=== PATIENT | female | born 1945 | race Caucasian/White ===

== ENCOUNTER 2020-08-01 13:55 | Emergency (ER) | payer MEDICARE, OTHER ==
[~2020-08-01] VITALS: Ht 154.9 cm; Wt 64.0 kg
[2020-08-01] MEDS ORDERED: CELECOXIB100 MG PO (14:13)
[2020-08-01] MEDS ORDERED: FLUDROCORTISON0.1 MG PO (14:13)
[2020-08-01] MEDS ORDERED: HYDROCORTISONE10 MG PO (14:13)
[2020-08-01] MEDS ORDERED: ESTRADIOL42.5 GM VG (14:14)
[2020-08-01] MEDS ORDERED: GABAPENTIN800 MG PO (14:14)
[2020-08-01] MEDS ORDERED: LEVOTHYROXINE150 MCG PO (14:14)
[2020-08-01] MEDS ORDERED: ESTRADIOL1 EAC1 TD (14:14)
[2020-08-01] MEDS ORDERED: ONE TOUCH ULTR1 EACH MISC (14:15)
== END 2020-08-01 16:34 | disposition home or self-care (01) ==
LOC: ED 13:55
DX: G43.909 Migraine, unspecified, not intractable, without status migrainosus (principal); Z79.899 Other long term (current) 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
CPT/HCPCS: 70450; 80053; 85025; 85651; 96374; 96375; 99284-25; J1200; J2270; J2765; J7040

== ENCOUNTER 2020-10-21 16:46 | Emergency (ER) | payer MEDICARE, OTHER ==
[~2020-10-21] VITALS: Ht 154.9 cm; Wt 61.2 kg
[~2020-10-21 16:46] MED LIST: CELECOXIB100 MG PO; ESTRADIOL1 EAC1 TD; ESTRADIOL42.5 GM VG; FLUDROCORTISON0.1 MG PO; GABAPENTIN800 MG PO; HYDROCORTISONE10 MG PO; LEVOTHYROXINE150 MCG PO; ONE TOUCH ULTR1 EACH MISC
--- NOTE | 2020-10-21 22:39 | EKG ---
[facility] [address] [facility] [place], [place] [address] Signed Normal sinus rhythm T wave abnormality, consider anterior ischemia Abnormal ECG No previous ECGs available Confirmed by BOBO FULLER MD ([id number]) on 10/21/2020 10:39:36 PM Electronically Signed By: BOBO FULLER MD 10/21/20 2239 PATIENT NAME: LOGAN LOPEZ Electrocardiogram DATE OF : 47 PHYSICIAN: BOBO FULLER MD REPORT #: [id number] REPORT IS CONFIDENTIAL AND NOT TO BE RELEASED WITHOUT AUTHORIZATION
== END 2020-10-21 23:14 | disposition home or self-care (01) ==
LOC: ED 16:46
DX: I10 Essential (primary) hypertension (principal); E83.42 Hypomagnesemia; E87.6 Hypokalemia; E11.9 Type 2 diabetes mellitus without complications; E03.9 Hypothyroidism, unspecified; Z79.899 Other long term (current) 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
CPT/HCPCS: 80048; 83735; 84484; 85025; 93005; 93010; 99285-25

== ENCOUNTER 2021-09-30 11:11 | Inpatient (IN) | payer MEDICARE, OTHER ==
[~2021-09-30] VITALS: Ht 154.9 cm; Wt 65.3 kg
[2021-09-30] MEDS ORDERED: ESCITALOPRAM OX10 MG PO (11:33)
[2021-09-30] MEDS ORDERED: CLOPIDOGREL75 MG PO (11:33)
[2021-09-30] MEDS ORDERED: ATORVASTATIN CA40 MG PO (11:33)
[2021-09-30] MEDS ORDERED: PRAMIPEXOLE0.125 MG PO (11:34)
--- OUTSIDE RECORDS SUMMARY | 2021-09-30 12:58 | XMS ---
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 Jeanne has no Care Guidelines for this patient. Arely VISIT COUNT (12 MO.) 1 [facility] 2 JULIETTE Manzanares TOTAL 3 NOTE: Visits indicate total known visits. ED/C VISIT TRACKING (12 MO.) 09/30/2021 11:11 JULIETTE Adame [place] TYPE: Emergency COMPLAINT: - FEVER WEAKNESS 08/20/2021 09:54 [facility] Bita MARQUEZ TYPE: Emergency DIAGNOSES: - Facial Droop - Transient cerebral ischemic attack, unspecified - Acute cystitis without hematuria - Extremity Weakness 10/21/2020 16:46 JULIETTE Abdul TYPE: Emergency COMPLAINT: - BLOOD PRESSURE PROBLEM DIAGNOSES: - Hypothyroidism, unspecified - Hypomagnesemia - Essential (primary) hypertension - Hypokalemia - Other halfway (current) 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 - Type 2 diabetes mellitus without complications INPATIENT VISIT TRACKING (12 MO.) 08/21/2021 18:11 [facility] Pierce [facility] M[facility] TYPE: Neurology DIAGNOSES: - Hypothyroidism, unspecified - Weakness - Restless legs syndrome - Personal history of other diseases of the nervous system and sense organs - Flushing - Other symptoms and signs involving the nervous system - Transient cerebral ischemic attack, unspecified - Primary adrenocortical insufficiency [email or web address]
--- NOTE | 2021-09-30 15:45 | NUR ---
THIS RN RECEIVED REPORT FROM MAJO REDMAN FROM THE ER. PT ARRIVE TO FLOOR VIA STRETCHER AND NEEDED TO BE PULLED OVER. PT PLEASANTLY CONFUSED AT THIS TIME, ORIENTED TO HER FIRST NAME
--- NOTE | 2021-09-30 16:21 | NUR ---
CALL TO DR. CRENSHAW RE: FEVER. ONE TIME DOSE 325MG PO TYLENOL ORDERED.
--- NOTE | 2021-09-30 19:18 | NUR ---
PT IN BED WITH EYES OPEN, NO NEEDS, CALL LIGHT IN REACH.
--- NOTE | 2021-09-30 20:56 | NUR ---
PT SON, [place], WOULD LIKE HIS NUMBER TO IN PT CHART, PT GAVE PERMISSION. [phone]
--- NOTE | 2021-09-30 21:36 | NUR ---
IN TO SEE PT. SCHEDULED MEDICATIONS DUE. ASSESSMENT COMPLETED. ASSISTED PT UP TO BSC AND BACK TO BED. IV FLUIDS INFUSING. PT DENIES PAIN AND DISCOMFORT. PT IS AFEBRIL AT THIS TIME. ALERT AND ORIETNTED X 3. PLEASANT AND COOPERATIVE [facility] STAFF AND CARES. SNACKS AND FRESH WATER PROVIDED. I AND O'S COMPLETED. NO OTHER NEEDS. BED ALARM ON. CALL LIGHT IN REACH.
--- NOTE | 2021-09-30 22:01 | EKG ---
[facility] [address] [facility] [place] [address] Signed Normal sinus rhythm Rightward axis Inferior infarct , age undetermined T wave abnormality, consider anterolateral ischemia Abnormal ECG When compared with ECG of 21-OCT-2020 20:36, Inferior infarct is now present T wave inversion now evident in Lateral leads Confirmed by FATOU CRENSHAW DO ([id number]) on 09/30/2021 10:01:26 PM Electronically Signed By: FATOU CRENSHAW DO 09/30/212200 PATIENT NAME: LOGAN LOPEZ Electrocardiogram DATE OF : 47 PHYSICIAN: FATOU CRENSHAW DO REPORT #: [id number] REPORT IS CONFIDENTIAL AND NOT TO BE RELEASED WITHOUT AUTHORIZATION
--- NOTE | 2021-09-30 22:33 | NUR ---
SCHEDULED MEDICATION GIVEN. PT RESTING, EASILY WAKES WITH VOICE. PT DENIES PAIN. NO OTHER NEEDS. BED ALARMN ON, CALL LIGHT IN REACH.
--- NOTE | 2021-09-30 23:39 | NUR ---
CALL LIGHT ON, BED ALARM SOUNDING. IN TO ASSSIT PT TO THE BATHROOM. NEW BAG IV FLUIDS INFUSING. PT BACK IN BED. NO OTHER NEEDS, BED ALARM ON. CALL LIGHT IN REACH.
--- NOTE | 2021-10-01 00:53 | NUR ---
IN TO ASSIST PT TO THE RESTROOM. PT BACK IN BED. PT DENIES PAINA NAD DISCOMFROT AT THIS TIME. NO OTHER NEEDS, BED ALARM ON, CALL LIGHT IN REACH.
--- NOTE | 2021-10-01 02:10 | NUR ---
in to see pt. scheduled medication given. vss obtained. assisted pt up to restroom to void. med formed bm noted. pt resing in bed on left side. fresh water provided. vss obtained. temp noted 99.3. blankets turned down. no other needs. bed alram on. call light in reach.
--- NOTE | 2021-10-01 03:42 | NUR ---
IN TO SEE PT. PT TEMP. 99.1. PT ASYMPYOMATIC AT THIS TIME. WILL CONTINUE TO MONITOR. BED ALARM ON. PT DENIES NEED TO USE RESTROOM SAT THIS TIME. CALL LIGHT IN REACH.
--- NOTE | 2021-10-01 05:16 | NUR ---
ASSISTED PT TO RESTROOM. ASSESSMENT COMPLETED. I AND O'S COMPLETED. VS COMPLETED. PT LAYING IN BED BED ALARM ON. NO OTHER NEEDS. PT DENIES PAIN. CALL LIGHT IN REACH.
--- NOTE | 2021-10-01 05:49 | NUR ---
scheduled medication given. pt laying in bed with eyes open. no other needs. bed alarm on. call light in reach.
--- NOTE | 2021-10-01 06:22 | NUR ---
ALERT AND OREITNED X 3. CONTINENT WITH INTERMITTENT INCONTINENCE, 1 PA PIVOT TO BSC, RA, REG DIET, AM LABS . NO C/O PAIN OR DISCOMOFRT. BED ALRAM. IV LAC SL, IV RFAWITH FLUID INFUSING. NO COUGH NOTED. COVID PERCUATIONS.
--- NOTE | 2021-10-01 07:30 | NUR ---
Shift report received from FEROZ Monte/ANAYA Hernandez in room to assist pt to bathroom, no further needs at this time
[2021-10-01] MEDS ORDERED: ESTRADIOL1 MG PO (09:40)
[2021-10-01] MEDS ORDERED: GLIMEPIRIDE2 MG PO (09:44)
[2021-10-01] MEDS ORDERED: LEXAPRO10 MG PO (09:46)
[2021-10-01] MEDS ORDERED: METFORMIN HCL500 M2 PO (09:49)
[2021-10-01] MEDS ORDERED: OMEPRAZOLE20 M1 PO (09:50)
--- NOTE | 2021-10-01 09:50 | NUR ---
Spoke with pt by phone as she is Covid +. Pt states she lives in town in a house with 3 steps. Steps have rails and she does not have issues with her steps. She has horses and chickens and is active. complaint is she is fatiqued. She states her spouse will complete house hold tasks, shopping and cooking. She denies needs and is not using 02. Plans on dc to home with spouse.
[2021-10-01] MEDS ORDERED: ACETYL L-CARNI1 EACH PO (09:51)
--- NOTE | 2021-10-01 09:54 | NUR ---
MED REC COMPLETED BY PHARMACY
--- NOTE | 2021-10-01 10:00 | NUR ---
Pt sitting up in bed safely w/ call light in reach. Morning assesment complete, scheduled meds given, and new bag of IV fluids hung and infusing per provider order. Pt denies any further needs at this time, VSS on RA
--- NOTE | 2021-10-01 11:08 | NUR ---
HAVE NOT SEEN PT DUE TO PRECAUTIONS. WILL FOLLOW NEEDED
--- NOTE | 2021-10-01 12:30 | NUR ---
Pt sitting up in bed w/ call light in reach, eating lunch. IV abx hung and infsuing per provider order. Pt denies any needs at this time, pt updated on plan of care
--- NOTE | 2021-10-01 13:50 | NUR ---
REPORT RECEIVED ON PT FROM DROP WIRER NANCY. PT TRANSPORTED TO THE CCU VIA HOSPITAL BED BY FEROZ HERNADEZ. PT WAS ALERT AND ORIENTED UPON ARRIVAL. ALL BELONGING TRANSPORTED WITH PT.
--- NOTE | 2021-10-01 14:00 | NUR ---
Pt transfered to CCU via hospital bed, VSS on RA, report given to CCU FEROZ Soares
--- NOTE | 2021-10-01 14:27 | NUR ---
INITIAL ASSESSMENT COMMPLETED. PT BLOOD GLUCOSE UPON ARRIVAL WAS 438. STARTED ON INSULIN DRIP AT 7.2 UNITS/HR AT THIS TIME. IV FLUIDS INFUSING. PT ALERT AND ORIENTED, UNDERSTANDS PLAN OF CARE AT THIS TIME. CALL LIGHT WITHIN REACH. DENIES FURTHER NEEDS AT THIS TIME.
--- NOTE | 2021-10-01 14:31 | NUR ---
PT UP TO BSC TO VOID. STEADY ON FEET. NOT FOLLOWING COMMANDS WELL. REORIENTED PT TO DIRECTIONS. BACK IN BED. FLUIDS AND INSULIN DRIP INFUSING. CALL LIGHT WITHIN REACH. NO FURTHER NEEDS AT THIS TIME.
--- NOTE | 2021-10-01 15:22 | NUR ---
INSULIN DRIP TITRATED PER PROTOCOL (SEE EMAR). PT RESTING IN BED WATCHING TELEVISION. CALL LIGHT WITHIN REACH. WILL CONTINUE TO MONITOR.
--- NOTE | 2021-10-01 17:00 | NUR ---
BANKING SERVICES OFFICER IN ROOM TO DRAW BLOOD. INSULIN DRIP TITRATED PER PROTOCOL (SEE EMAR). CALL LIGHT WITHIN REACH. DENIES FURTHER NEEDS AT THIS TIME.
--- NOTE | 2021-10-01 18:29 | NUR ---
PT GIVEN PO POTASSIUM AND IV FLUID BOLUS NOW INFUSING. PT UP TO VOID AGAIN AND BACK TO BED. INSULIN DRIP INFUSING PER PROTOCOL. CALL LIGHT WITHIN REACH. WILL CONTINUE TO MONITOR.
--- NOTE | 2021-10-01 20:15 | NUR ---
ASSESSED PT, MED PASS COMPLETED, CBG TAKEN AND INSLUIN DRIP TITRATED PER PROTOCOL, PT NOW ON COLUMN 3 AT 7.5 U/HR ON INSULIN DRIP, PT STATES SHE IS COMFORTABLE WITH NO COMPLAINTS AT THIS TIME, APPEARS TO BE IN GOOD SPIRITS, EDUCATION PROVIDED ON MEDICATIONS GIVEN AND EFFECTS OF INSULIN DRIP/REASON FOR REQUIRING POTASSIUM, WILL CONTINUE HOURLY BLOOD SUGAR CHECKS AND TITRATE INSULIN DRIP PER PROTOCOL
--- NOTE | 2021-10-01 20:47 | NUR ---
CALL LIGHT ANSWERED. PT UP TO BSC WITH SBA. VOIDED 450ML DILUTE YELLOW URINE, SAMPLE SENT TO LAB. RN ASSISTED WITH PERICARE, PT NOW BACK IN BED. TOLERATED ACTIVITY WELL, DENIES SOB OR DIZZINESS. CALL LIGHT WITHIN REACH.
--- NOTE | 2021-10-01 21:11 | NUR ---
CBG 290, PER INSLUIN DRIP TITRATION PROTOCOL, PT WILL REMAIN AT 7.5 U/HR ON COLUMN 3
--- NOTE | 2021-10-01 22:19 | NUR ---
CHECKED PTS BLOOD SUGAR, TITRATED INSULIN DRIP PER PROTOCOL, AMBULATED PT TO BATHROOM VIA SBA, PT STEADY, ROM WNL, PT STATES SHES COMFORTABLE AND HAS NO QUESTIONS OR CONCERNS AT THIS TIME WITH HER TREATMENT
--- NOTE | 2021-10-02 | NUR ---
COMPLETED MIDNIGHT ASSESSMENT, PT SLEEPING, CHECKED CBG AND TITRATED INSULIN DRIP PER PROTOCOL, PT APPEARS COMFORTABLE AND RESTING WELL
--- NOTE | 2021-10-02 02:24 | NUR ---
IN TO GIVE SCHEDULED MEDS AND CHECK BLOOD SUGAR. CB, INSULIN DRIP TITRATED TO 6.8 UNITS/HR PER PROTOCOL. PT UP TO BATHROOM WITH SBA FOR CORD MANAGEMENT. PT VOIDED 350ML DILUTE YELLOW URINE AND PROVIDED OWN PERICARE. PT BACK IN BED, DENIES FURTHER REQUESTS. CALL LIGHT WITHIN REACH.
--- NOTE | 2021-10-02 04:58 | NUR ---
PT BLOOD SUGAR 154, DROPPED TO COLUMN 3 ON INSULIN DRIP TITRATION PROTOCOL AND DECREASED RATE TO 3 U/HR. AMBULATED PT TO BATHROOM VIA SBA, PT STEADY ON FEET. STATES SHE IS FEELING WELL AND HAS NO COMPLAINTS. DENIES DYSPNEA OR DIZZINESS WHILE AMBULATING
--- NOTE | 2021-10-02 06:18 | NUR ---
PT EXPERIENCED UNEVENTFUL NIGHT, REMAINED A&OX4, NO CONFUSION, OCCASIONALLY FORGETFULL, DENIES ANY SHORTNESS OF BREATH, PT ABLE TO AMBULATE WELL TO BATHROOM WITH SBA FROM STAFF. INSULIN DRIP REMAINS ON AT 3 U/HR PER TITRATION PROTOCOL, BLOOD SUGARS TRENDED DOWN TOWARDS GOAL THROUGHOUT NIGHT, D5 1/2 NS ADDED ONCE BLOOD SUGARS WERE UNDER 200. PT IS SLEEPING AND APPEARS COMFORTABLE.
--- NOTE | 2021-10-02 07:30 | NUR ---
REPORT RECIEVED FROM DAY SHIFT RN. CARE OF PATIENT ASSUMED AT THIS TIME.
--- NOTE | 2021-10-02 08:00 | NUR ---
PATIENT UP TO BR FOR VOID AND BACK TO BED. PATIENT REFUSED BED BATH AND CHAIR AT THIS TIME. LINENS CHANGED, FACE AND HANDS WASHED. PATIENT SITTING UP FOR BREAKFAST. VITALS CHARTED
--- NOTE | 2021-10-02 09:01 | NUR ---
IN ROOM FOR ASSESSMENT AND MEDICATION ADMINISTRATION. INSULIN DRIP TITRATED AT THIS TIME PER PROTOCOL (SEE EMAR). PT ALERT AND OREINTED, ANSWERING QUESTIONS APPROPRIATELY. PLAN OF CARE FOR DAY ESTABLISHED. ALL QUESTIONS ANSWERED. CALL LIGHT WITHIN REACH. DENIES FURTHER NEEDS AT THIS TIME.
--- NOTE | 2021-10-02 10:15 | NUR ---
INSULIN DRIP TITRATED PER PROTOCOL. PT IN BED SLEEPING IV FLUIDS INFUSING ALONG WITH INSULIN DRIP. CALL LIGHT WITHIN REACH. WILL CONTINUE TO MONITOR.
--- NOTE | 2021-10-02 11:22 | NUR ---
PATIENT SBA TO BR FOR VOID AND LOOSE STOOL. THIS PUBLIC INFORMATION SPECIALIST ASSISTED PATIENT WITH BEDBATH. PATIENT BACK TO SIDE OF BED. FRESH ICE WATER PROVIDED. CALL LIGHT AND PERSONAL ITEMS IN EASY REACH
--- NOTE | 2021-10-02 12:08 | NUR ---
ASSESSMENT COMPLETED AT THIS TIME. PT TAKEN OFF THE INSULIN DRIP AT 1130. GIVEN 5 UNITS OF INSULIN PER SLIDING SCALE (SEE EMAR). IV FLUIDS DC'D AT THIS TIME. ROCEPHIN NOW INFUSING. PT EATING LUNCH. DENIES PAIN OR DISCOMFORT. CALL LIGHT WITHIN REACH. WILL CONTINUE TO MONITOR.
--- NOTE | 2021-10-02 14:00 | NUR ---
Spoke with Renetta. BS has stabilized. Wants to go home with family. Denies needs. May move to the floor today from CCU. She requested per Dr. Concepcion for a change of MD. Discussed with pt she will need to call and do this. Gave info of other medical offices in the area.
--- NOTE | 2021-10-02 14:36 | NUR ---
LAB IN ROOM AT THIS TIME FOR BLOOD DRAW.
--- NOTE | 2021-10-02 15:16 | NUR ---
ASSESSMENT COMPLETED. PT UP TO BSC WITH MINIMAL STAND BY ASSIST. PT STEADY ON FEET. LUNGS SOUND CLEAR THROUGHOUT. PT DENIES PAIN, DIZZINESS, SHORTNESS OF BREATH, OR ANY OTHER DISCOMFORT. BACK IN BED. CALL LIGHT WITHIN REACH. WILL CONTINUE TO MONITOR.
--- NOTE | 2021-10-02 17:44 | NUR ---
THIS RN TRANSFERED PT TO [facility] - ORIENTED PT TO ROOM, CALL LIGHT IN REACH, DENIES NEEDS. PT WAS NOT AWARE SHE SAID THAT SHE STILL HAD COVID - JUST THOUGHT THAT WHILE SHE WAS HERE THAT SHE TESTED POSITIVE - NEEDS CONTINUED EDUCATION ON ILLNESS. BS 247 VIA FINGER STICK.
--- NOTE | 2021-10-02 18:55 | NUR ---
SHIFT REPORT RECEIVED FROM DAYSHIFT FEROZ CHILDS AT BEDSIDE. pt AWAKE AND RESTING IN BED, RR EVEN AND UNLABORED. pt ON RA, NO DISTRESS NOTED. CALL LIGHT IN REACH.
--- NOTE | 2021-10-02 21:00 | NUR ---
IN TO GET VITALS, PT TO THE TOILET WITH SBA, ICE WATER PROVIDED, NO FURTHER NEEDS AT THIS TIME
--- NOTE | 2021-10-02 22:03 | NUR ---
ASSESSMENT COMPLETE, SCHEDULED PO MEDS GIVEN (SEE EMAR). pt AWAKE AND RESTING IN BED, ON RA. VSS. pt DENIES NAUSEA AND PAIN. IV SITES X2 WNL, FLUSH EASILY. NO FURTHER NEEDS, CALL LIGHT IN REACH.
--- NOTE | 2021-10-02 22:30 | NUR ---
SCHEDULED INSULIN LISPRO VERIFIED WITH SECOND RN CODEY AND GIVEN, SEE EMAR. ANAYA MAYFIELD TO GIVE WARM BLANKET PER pt REQUEST. CALL LIGHT IN REACH.
--- NOTE | 2021-10-03 | NUR ---
IN TO ASSIST PT WITH TOILET NEEDS
--- NOTE | 2021-10-03 01:03 | NUR ---
pt RESTING IN BED WITH EYES CLOSED. RR EVEN AND UNLABORED, NO DISTRESS NOTED. pt APPEARS RELAXED AND COMFORTABLE. CALL LIGHT IN REACH.
--- NOTE | 2021-10-03 03:21 | NUR ---
pt RESTING IN BED, AWAKE. pt DENIES NEEDS. CALL LIGHT REMAINS IN REACH.
--- NOTE | 2021-10-03 03:39 | NUR ---
ASSESSMENT COMPLETE, NO ACUTE CHANGES. pt A/OX4, DENIES PAIN AND NAUSEA. REPORTS OCCASIONAL COUGH, NO NEEDS OR CONCERNS VERBALIZED. CALL LIGHT IN REACH. pt CALLS APPROPRIATELY.
--- NOTE | 2021-10-03 05:37 | NUR ---
PT CALLED, UP TO BATHROOM SBA, BACK, VS, I/O COMPLETE. WARM BLANKET PROVIDED. CALL LIGHT WITHIN REACH NO OTHER NEEDS.
--- NOTE | 2021-10-03 05:57 | NUR ---
SCHEDULED THYROID MEDICATION GIVEN, SEE EMAR. FRESH WATER GIVEN, SEE EMAR. NO FURTHER NEEDS, CALL LIGHT IN REACH. LAB IN ROOM FOR SCHEDLED AM LAB DRAW.
--- NOTE | 2021-10-03 06:46 | NUR ---
DR FULLER CALLED FOR CRITICAL AM POTASSIUM, RESULT OF 2.3. NO NEW ORDERS RECEIVED AT THIS TIME. CONDUIT HELPERFEROZ ALEGRE AWARE.
--- NOTE | 2021-10-03 09:07 | NUR ---
IN PT ROOM DISCUSSED LOW CARB ADA DIET - AND KCL - PT EATING BANANNA AND TAKING PO MEDS INCLUDING KCL FOR LOW VALUE. TALKED ABOUT MODERATION OF FOOD. PT REPORTS SHE FEELS BACK TO BASE LINE - WITH OCCASIONAL COUGH. ALERT AND ORIENTED. HOPING TO GO HOME TODAY WITH . BS WNL AT BREAKFAST NO INSULIN NEEDED.
--- NOTE | 2021-10-03 09:20 | NUR ---
UPDATE ON PT TO DR FULLER AT BEDSIDE. PT HOPING TO GO HOME.
[2021-10-03] MEDS ORDERED: KLOR-CON 1010 MEQ PO (12:05)
[2021-10-03] MEDS ORDERED: HYDROCORTISONE10 MG PO (12:06)
--- NOTE | 2021-10-03 12:15 | NUR ---
PT NOT EATING LUNCH HERE - REFUSED BS CHECK AND 14OO MED - WILL TAKE NOON IV ABX - UP IN WAITING FOR DC TO HOME.
--- NOTE | 2021-10-03 13:01 | NUR ---
PT IV DC FROM UNSCRAMBLER WITH RN APPROVAL -DC INST. GIVEN AND APPT. CARD AND VITALS - RX IN TO DISCUSS MED - WAITING FOR FOR RIDE HOME.
== END 2021-10-03 13:00 | disposition home or self-care (01) | DRG 70 ==
LOC: ED 11:11 → MS 14:51 → CCU 10-01 13:50 → MS 10-02 17:30
PROVIDERS: ADMIT Student in an Organized Health Care Education/Training Program; ATTEND Student in an Organized Health Care Education/Training Program
PROC: 8E0ZXY6 Isolation (ICD-10-PCS; principal; 2021-09-30)
DX: G93.41 Metabolic encephalopathy (principal); E11.10 Type 2 diabetes mellitus with ketoacidosis without coma; U07.1 COVID-19; E27.1 Primary adrenocortical insufficiency; G25.81 Restless legs syndrome; G89.4 Chronic pain syndrome; E03.9 Hypothyroidism, unspecified; G47.00 Insomnia, unspecified; E11.65 Type 2 diabetes mellitus with hyperglycemia; T38.0X5A Adverse effect of glucocorticoids and synthetic analogues, initial encounter; Z90.710 Acquired absence of both cervix and uterus; Z79.899 Other long term (current) 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
CPT/HCPCS: 71045; 80048; 80053; 81001; 82010; 82140; 82436; 82803; 83036; 83605; 83735; 84133; 84300; 85025; 86140; 93005; 93010; 97165; 99285-25; A9270; C9803; G0480; J0696; J1650; J1720; J1815; J3475; J7030; J7042; J7070; J7121; M0243; Q0244; U0003

== ENCOUNTER 2021-10-22 13:48 | Inpatient (IN) | payer MEDICARE ==
[~2021-10-22] VITALS: Ht 154.9 cm; Wt 62.4 kg
[~2021-10-22 13:48] MED LIST changes: +ACETYL L-CARNI1 EACH PO; +ATORVASTATIN CA40 MG PO; +CLOPIDOGREL75 MG PO; +ESCITALOPRAM OX10 MG PO; +ESTRADIOL1 MG PO; +GLIMEPIRIDE2 MG PO; +KLOR-CON 1010 MEQ PO; +LEXAPRO10 MG PO; +METFORMIN HCL500 M2 PO; +OMEPRAZOLE20 M1 PO; +PRAMIPEXOLE0.125 MG PO
--- OUTSIDE RECORDS SUMMARY | 2021-10-22 13:50 | XMS ---
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 Care History Medical/Surgical 10/01/2021 [facility] - Patient is currently established with [facility]. If patient is seen in the ED during business hours. Please contact CHWs at [facility]. Care Recommendation: If this patient has had 5 or more Emergency Department visits in the last 12 months.\T\nbsp; Patient will require education on the scope and purpose of the ED as an acute care provider not a Primary Care Provider and should not be utilized for chronic conditions.\T\nbsp; These are guidelines and the provider should exercise clinical judgment when providing care. [facility] MO.) [facility] TOTAL 3 NOTE: Visits indicate total known visits. ED/UCC VISIT TRACKING (12 MO.) 10/22/2021 13:48 JULIETTE Adame [place] TYPE: Emergency COMPLAINT: - WEAKNESS 09/30/2021 11:11 JULIETTE Adame [place] TYPE: Emergency COMPLAINT: - FEVER WEAKNESS 08/20/2021 09:54 [facility] Bita MARQUEZ TYPE: Emergency DIAGNOSES: - Facial Droop - Transient cerebral ischemic attack, unspecified - Acute cystitis without hematuria - Extremity Weakness INPATIENT VISIT TRACKING (12 MO.) 09/30/2021 14:51 JULIETTE Adame [place] TYPE: Medical Surgical COMPLAINT: - COVID/AMS DIAGNOSES: - Metabolic encephalopathy - Metabolic encephalopathy - Adverse effect of glucocorticoids and synthetic analogues, initial encounter - Primary adrenocortical insufficiency - Type 2 diabetes mellitus with hyperglycemia - Hypothyroidism, unspecified - 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) 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 - Hypothyroidism, unspecified - Restless legs syndrome - Restless legs syndrome - Acquired absence of both cervix and uterus - Other alf (current) 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 - Type 2 diabetes mellitus with hyperglycemia - Chronic pain syndrome - Insomnia, unspecified - Type 2 diabetes mellitus with ketoacidosis without coma - COVID-19 - Primary adrenocortical insufficiency - Acquired absence of both cervix and uterus - COVID-19 - Insomnia, unspecified - Type 2 diabetes mellitus with ketoacidosis without coma - COVID-19 - Adverse effect of glucocorticoids and synthetic analogues, initial encounter - Chronic pain syndrome 08/21/2021 18:11 [facility] Pierce [facility]QUEZ M[facility] TYPE: Neurology DIAGNOSES: - Hypothyroidism, unspecified - Weakness - Restless legs syndrome - Personal history of other diseases of the nervous system and sense organs - Flushing - Other symptoms and signs involving the nervous system - Transient cerebral ischemic attack, unspecified - Primary adrenocortical insufficiency [id number]
--- NOTE | 2021-10-22 21:00 | NUR ---
pt ARRIVES FROM ER VIA STRETCHER WITH BATTERY PLATE ASSEMBLER FEROZ SADLER. pt ABLE TO MOVE SELF TO HOSPITAL BED. STATES HASN'T BEEN ABLE TO GET UP TODAY. INSTRUCTED TO USE CALL LIGHT IF NEEDS TO GET OUT OF BED, pt VERBALIZES UNDERSTANDING. ORIENTATION TO ROOM AND CALL LIGHT PROVIDED. VSS. TEMPERATURE IN ROOM ADJUSTED. ICE WATER AND JELLO PROVIDED REQUESTED. pt HAS CALL LIGHT WITHIN REACH.
--- NOTE | 2021-10-22 22:00 | NUR ---
ASSESSMENT COMPLETED. GCS 15,A&O X4 BUT FORGETFUL AT TIMES. LUNGS CLEAR, HEART TONES REGULAR. ABD SOFT, NONTENDER, BOWEL TONES ACTIVE. CMS INTACT. L AC IV WNL, CDI, FLUSHED WELL. NEW IV STARTED IN RIGHT FA, 22 G. SCHEDULED MEDS PROVIDED. NO OTHER NEEDS AT THIS TIME. CALL LIGHT IN REACH.
--- NOTE | 2021-10-23 00:02 | NUR ---
PT CALLS TO USE BR. SBA TO BR AND BACK TO BED. PT SLIGHTLY CONFUSED, REORIENTED. IV WNL, MED INFUSING PER ORDER. NO OTHER NEEDS. BED ALARM ON. CALL LIGHT IN REACH.
--- NOTE | 2021-10-23 02:25 | NUR ---
ASSESSMENT, VS AND I&O COMPLETED. PT UP TO BR AND BACK TO BED, SBA. NASAL SWAB AND URINE SAMPLES COLLECTED AND SENT TO LAB. PT FORGETFUL. HEART TONES HAS MURMUR. IV MED INFUSING PER ORDER. NO OTHER NEEDS AT THIS TIME. RAILS UP, BED ALARM ON, CALL LIGHT IN REACH.
--- NOTE | 2021-10-23 04:00 | NUR ---
PT RESTING IN BED, EYES CLOSED. RR EVEN, UNLABORED. CALL LIGHT IN REACH.
--- NOTE | 2021-10-23 06:13 | NUR ---
PT UP TO BR AND BACK TO BED. VS AND I&O COMPLETED. SCHEDULED MEDS PROVIDED. NO OTHER NEEDS AT THIS TIME. CALL LIGHT IN REACH.
--- NOTE | 2021-10-23 07:46 | NUR ---
MED REC COMPLETED BY PHARMACY
--- NOTE | 2021-10-23 08:30 | NUR ---
REPORT RECEIVED FROM NIGHT RN AND PT. CARE RESUMED. PT. ASSISTED WITH SITTING UP FOR BREAKFAST. SHE IS PLEASANT, ON ROOM AIR AND DENIES PAIN OR SOB.
--- NOTE | 2021-10-23 09:19 | NUR ---
Pt was sitting up and alert upon walking in. States she slept pretty good. Did a CBG and gave 5 units humalog insulin based on sliding scale. At the moment, no complains of pain. No other needs as of right now.
--- NOTE | 2021-10-23 10:43 | NUR ---
PT. C/O PAIN AT LFA IV SITE. SITE LEAKING BLOOD, BUT FLUSHES. REMOVED WITH CATH. INTACT. FINE CRACKLES PRESENT IN BASES OF LUNGS. PT. DEMONSTRATES USE OF ACAPELLA. SHE IS ALERT AND ORIENTED TO ALL. DISCUSSED SITTING UP IN THE CHAIR FOR LUNCH. PT. LEFT RESTING WITH CALL LIGHT IN REACH.
--- NOTE | 2021-10-23 11:00 | NUR ---
Pt states [place] in town in a house with 3 steps. Steps have rails and she does not have issues with her steps. She has horses and chickens and is active. complaint is cough with extreme weakness. Pt now has pneumonia. States feeling better. She states her spouse will complete house hold tasks, shopping and cooking. She denies needs and is not using 02. Plans on dc to home with spouse.
--- NOTE | 2021-10-23 11:30 | NUR ---
Blood sugar was taken and humolog was given based on sliding scale.Pt got up and walked to recliner to sit on for lunch. Went over IS, was able to demonstrate and do without problems. No further help needed at the moment.
--- NOTE | 2021-10-23 14:00 | NUR ---
Pt was on the phone with upon entering. Complained of slight pain on legs and hips due to sitting for too long. Got up and walked to bathroom. Voided 200ml with small BM and decided we would walk to the nurses station shortly before dinner. Demonstrated IS with no problem. Call light within reach, no further help as of now.
--- NOTE | 2021-10-23 16:20 | NUR ---
PT. AMBULATED WITH SBA AROUND THE UNIT AND TOLERATED WELL WITH BEAN WEIGHER.
--- NOTE | 2021-10-23 16:20 | NUR ---
Ambulated pt around the nurses station. Handled it well, O2 maintained at 97. Repositioned back into bed, call light within reach.
--- NOTE | 2021-10-23 17:45 | NUR ---
CBG DONE 379, ADMINISTERED INSULIN PER SLIDING SCALE. NOTIFIED , NO NEW ORDERS. PATIENT THEN ATE COTTAGE CHEESE FOR DINNER. APPEARS EXCITED THAT IS COMING TO VISIT. NO OTHER NEEDS AT THIS TIME. CALL LIGHT WITHIN REACH.
--- NOTE | 2021-10-23 18:52 | EKG ---
[facility] [address] [facility] [place] [address] Signed Normal sinus rhythm Possible Inferior infarct (cited on or before 30-SEP-2021) Abnormal ECG When compared with ECG of 30-SEP-2021 11:28, Nonspecific T wave abnormality has replaced inverted T waves in Inferior leads Nonspecific T wave abnormality has replaced inverted T waves in Anterolateral leads Confirmed by LEONILA PEARSON MD ([id number]) on 10/23/2021 6:52:08 PM Electronically Signed By: LEONILA PEARSON MD 10/23/211851 PATIENT NAME: LOGAN LPOEZ Electrocardiogram DATE OF : 47 PHYSICIAN: LEONILA PEARSON MD REPORT #: [id number] REPORT IS CONFIDENTIAL AND NOT TO BE RELEASED WITHOUT AUTHORIZATION
--- NOTE | 2021-10-23 19:05 | NUR ---
SHIFT REPORT RECEIVED FROM ANISA REDMAN. PT RESTING IN BED. NO NEEDS AT THIS TIME. CALL LIGHT IN REACH.
--- NOTE | 2021-10-23 20:30 | NUR ---
ASSESSMENT, VS AND I&O COMPLETED. GCS 15, A&O X4 BUT FORGETFUL. PT HAS NUMBNESS AND TINGLING IN BOTH FEET, CHRONIC. LUNGS CLEAR IN UPPER LOBES AND DIM IN LOWER LOBES. HEART TONES HAVE A MURMUR. PULSES INTACT. IV WNL, CDI, FLUSHED WELL. NO OTHER NEEDS. CALL LIGHT IN REACH.
--- NOTE | 2021-10-23 22:28 | NUR ---
SCHEDULED MED PROVIDED. NO OTHER NEEDS AT THIS TIME. CALL LIGHT IN REACH.
--- NOTE | 2021-10-23 23:47 | NUR ---
PT RESTING IN BED, EYES CLOSED. RR EVEN, UNLABORED. IV MED INFUSING PER ORDER. BED ALARM ON, CALL LIGHT IN REACH.
--- NOTE | 2021-10-24 00:56 | NUR ---
PT REPORTS NEUROPATHY FOOT PAIN IN BOTH FEET, PRN PAIN MED PROVIDED. NO OTHER NEEDS. CALL LIGHT IN REACH.
--- NOTE | 2021-10-24 03:03 | NUR ---
PT IV PUMP ALARMING, RESOLVED. ASSESSMENT COMPLETED. PT FORGETFUL. LUNGS DIM IN UPPER LOBES AND DIM IN LOWER LOBES. PT REPORTS NO PAIN IN FEET NOW. IV WNL. NO NEEDS AT THIS TIME. CALL LIGHT IN REACH, BED ALARM ON.
--- NOTE | 2021-10-24 04:00 | NUR ---
PT RESTING IN BED, EYES CLOSED. RR EVEN, UNLABORED. CALL LIGHT INREACH, BED ALARM ON.
--- NOTE | 2021-10-24 06:05 | NUR ---
PT UP TO BR AND BACK TO BED, SBA. SCHEDULED MEDS PROVIDED. IV WNL, FLUSHED WELL. VS AND I&O COMPLETED. ICE WATER PROVIDED. NO OTHER NEEDS. CALL LIGHT IN REACH.
--- NOTE | 2021-10-24 08:40 | NUR ---
PATIENT UP TO CHAIR FOR BREAKFAST. MORNING MEDICATIONS ADMINISTERED. PATIENT REPORTED DID NOT SLEEP WELL LAST NIGHT, SECONDARY TO FEET HURTING. PATIENT STATED " I NEED MY GABAPENTIN". PATIENT PLANS TO DISCUSS WITH PHYSICIAN TODAY WHEN ROUNDING. NO OTHER NEEDS AT THIS TIME. CALL LIGHT WITHIN REACH.
--- NOTE | 2021-10-24 09:35 | NUR ---
No change in plan for discharge.
--- NOTE | 2021-10-24 10:00 | NUR ---
PT. DENIES PAIN OR SOB AT THIS TIME. CRACKLES PRESENT IN BASES OF LUNGS. SHE IS ON ROOM AIR AND O2 SAT IS 99%. SHE IS ALERT AND ORIENTED, PLEASANT. NO EDEMA PRESENT IN EXTREMITIES. IV WNL AND IVF INFUSING. DISCUSSED MEDS AND POC. LEFT RESTING IN THE CHAIR WITH CALL LIGHT IN REACH.
--- NOTE | 2021-10-24 10:44 | NUR ---
PT walked to chair to eat breakfast and sit up for awhile. Pt actively using IS while sitting in chair, patient states she feels stronger and wants to go home today. call light within reach.
[2021-10-24] MEDS ORDERED: LEVOFLOXACIN750 MG PO (15:06)
--- NOTE | 2021-10-24 15:40 | NUR ---
ALL DISCHARGE INSTRUCTIONS REVIEWED WITH PATIENT AND ALL QUESTIONS ANSWERED. IV REMOVED WITH CATH INTACT AND PT. EDUCATED.
--- NOTE | 2021-10-24 15:54 | NUR ---
PT. LEFT WITH ALL BELONGINGS VIA WHEELCHAIR WITH AND NURSE.
== END 2021-10-24 15:45 | disposition home or self-care (01) | DRG 178 ==
LOC: ED 13:48 → MS 20:11
PROVIDERS: ADMIT Internal Medicine; ATTEND Internal Medicine
DX: J15.6 Pneumonia due to other Gram-negative bacteria (principal); E27.1 Primary adrenocortical insufficiency; D64.9 Anemia, unspecified; E83.42 Hypomagnesemia; E11.65 Type 2 diabetes mellitus with hyperglycemia; E03.9 Hypothyroidism, unspecified; R79.89 Other specified abnormal findings of blood chemistry; I25.10 Atherosclerotic heart disease of native coronary artery without angina pectoris; G89.4 Chronic pain syndrome; K21.9 Gastro-esophageal reflux disease without esophagitis; F39 Unspecified mood [affective] disorder; G25.81 Restless legs syndrome; E87.6 Hypokalemia; Z86.16 Personal history of COVID-19; Z90.710 Acquired absence of both cervix and uterus; Z79.02 Long term (current) use of antithrombotics/antiplatelets; Z79.899 Other long term (current) 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
CPT/HCPCS: 36415; 51701; 71045; 71275; 74174; 80048; 80053; 81001; 83605; 83735; 83880; 84484; 85025; 87040; 87070; 87205; 87449; 87899; 93005; 93010; 93306; 94667; 99285-25; A9270; J1650; J1720; J1815; J1956; J2543; J3475; Q9967

== ENCOUNTER 2021-11-02 07:10 | Inpatient (IN) | payer MEDICARE ==
[~2021-11-02] VITALS: Ht 154.9 cm; Wt 63.1 kg
[~2021-11-02 07:10] MED LIST changes: +LEVOFLOXACIN750 MG PO
--- OUTSIDE RECORDS SUMMARY | 2021-11-02 07:12 | XMS ---
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 Care History Medical/Surgical 10/01/2021 [facility] - Patient is currently established with [facility]. If patient is seen in the ED during business hours. Please contact CHWs at [facility]. Care Recommendation: If this patient has [...] care. E.D. VISIT COUNT (12 MO.) 1 [facility].C. 3 JULIETTE Manzanares TOTAL 4 NOTE: Visits indicate total known visits. ED/UCC VISIT TRACKING (12 MO.) 11/02/2021 07:11 [facility] [place] TYPE: Emergency COMPLAINT: - POSS STROKE 10/22/2021 13:48 [facility]TE [facility] [place] TYPE: Emergency COMPLAINT: - WEAKNESS 09/30/2021 11:11 JULIETTE Abdul TYPE: Emergency COMPLAINT: - FEVER WEAKNESS [facility] DIAGNOSES: - Facial Droop - Transient cerebral ischemic attack, unspecified - Acute cystitis without hematuria - Extremity Weakness INPATIENT VISIT TRACKING (12 MO.) 10/22/2021 20:11 [facility]TE [facility] [place] TYPE: Medical Surgical COMPLAINT: - MULTILOBAR PNEUMONITIS DIAGNOSES: - Hypokalemia - Type 2 diabetes mellitus with hyperglycemia - Other comparator operator (current) 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 - tree wrapper (current) use of antithrombotics/antiplatelets - Hypothyroidism, unspecified - Gastro-esophageal reflux disease without esophagitis - Acquired absence of both cervix and uterus - Anemia, unspecified - Restless legs syndrome - Other specified abnormal findings of blood chemistry - Chronic pain syndrome - 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 - Unspecified mood [affective] disorder - Hypomagnesemia - Pneumonia due to other Gram-negative bacteria - Unspecified adrenocortical insufficiency 09/30/2021 14:51 [facility]TE [facility] [place] TYPE: Medical Surgical COMPLAINT: - COVID/AMS DIAGNOSES: - Metabolic encephalopathy - Metabolic encephalopathy - Adverse effect of glucocorticoids and synthetic analogues, initial encounter - Primary adrenocortical insufficiency - Type 2 diabetes mellitus with hyperglycemia - Hypothyroidism, unspecified - Other senior care (current) 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 - Hypothyroidism, unspecified - Restless legs syndrome - Restless legs syndrome - Acquired absence of both cervix and uterus - Other comparator operator (current) 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 - Type 2 diabetes [...] encounter - Chronic pain syndrome 08/21/2021 18:11 [facility] JIMMY Dennison TYPE: Neurology DIAGNOSES: - Hypothyroidism, unspecified - Weakness - Restless legs syndrome - Personal history of other diseases of the nervous system and sense organs - Flushing - Other symptoms and signs involving the nervous system - Transient cerebral ischemic attack, unspecified - Primary adrenocortical insufficiency [email or web address]
--- NOTE | 2021-11-02 11:00 | NUR ---
PT ARRIVED VIA STRETCHER AT THIS TIME. PT HAS PRONOUNCED RIGHT SIDE FACIAL DROOP. PT NOTED TO NOT HAVE ANY MOVEMENT ON THE RIGHT SIDE BUT SENSATION INTACT. PT ABLE TO ANSWER QUESTIONS APPROPRIATLEY BUT IS DROWSY. PTS IN ROOM, RAMIN.
--- NOTE | 2021-11-02 12:30 | NUR ---
THIS RN IN PTS ROOM WITH COLETTE MICHELLE P.T. PT ABLE TO SIT UP AT EDGE OF BED AND STAND WITH 2P MODERATE ASSIST. PT INCONTINT OF URINE THROUGH BRIEFS AND CHUCKS. BOTH CHANGED. PT BACK TO BED AND CALL LIGHT WTIHIN REACH
--- NOTE | 2021-11-02 13:30 | NUR ---
PT ON BED ORNELAS. PT INCONTINENT BEFORE ON BEDPAN, ABLE TO VOID STILL.
--- NOTE | 2021-11-02 15:00 | NUR ---
PT ON BEDPAN AND OFF BEDPAN. CALL LIGHT WTIHIN REACH. BRIEFS CHANGED DUE TO SLIGHT INCONTINENCE
--- NOTE | 2021-11-02 17:30 | NUR ---
THIS RN IN PTS ROOM. PT INCONTINET OF STOOL, PT STATES THAT SHE NEEDS TO PEE, PT ALREADY INCONTINENT. PT CHANGED AND REPOSITIONED.
--- NOTE | 2021-11-02 18:10 | NUR ---
PT ON BEDSIDE COMMODE
--- NOTE | 2021-11-02 18:40 | NUR ---
THIS RN GOT PT ON AND OFF OF BEDPAN AT THIS TIME. PT ABLE TO HAVE VISUAL KINSEY IN RIGHT EYE AND NOW CAN KEEP RIGHT LEG OFF OF BED FOR CLOSE TO 5SECS. CALL LIGHT WITHIN REACH
--- NOTE | 2021-11-02 19:35 | NUR ---
ANSWERED CALL LIGHT PATIENT WANTING TO USE THE BED ORNELAS. 1 PA. PATIENT ABLE TO TURN SIDE TO SIDE. CHNAGED PULLN UP AND GOWN. ANAYA ANDRADE HELPED THIS ARMED SECURITY OFFICER TO BOOST PATIENT UP TO BED.
--- NOTE | 2021-11-02 19:35 | NUR ---
REPORT RECEIVED FROM FEROZ TAN. pt RESTING IN BED WITH EYES CLOSED, BREATHING UNLABORED. HR 86 ON TELE 6. NO DISTRESS NOTED.
--- NOTE | 2021-11-02 20:00 | NUR ---
V/S AND I&O'S TAKEN AND BLOOD SUGAR CHECK DONE.
--- NOTE | 2021-11-02 20:28 | NUR ---
pt AWAKE, ALERT, ORIENTED TO PERSON, YEAR ONLY. REORIENTATION TO DATE, LOCATION, EVENT. SOME APHASIA NOTED. pt UNABLE TO MOVE RIGHT HAND, ARM VOLUNTARILY. RIGHT LEG WEAK, ABLE TO LIFT OFF BED, UNABLE TO DO HEEL, MEAD TEST. RIGHT SIDE FACIAL DROOP NOTED. ASSESSMENT COMPLETE. IV SITES FLUSHED WNL. SCHEDULED MEDICATIONS ADMINISTERED ORDERED. pt ASSISTED TO BED ORNELAS. CALL LIGHT IN LEFT HAND. BED ALARM ON FOR SAFETY.
--- NOTE | 2021-11-02 20:30 | NUR ---
PT ASSISTED OFF OF THE BEDPAN BY THIS TIRE INSTALLER. ATTENDS CHANGED. PT TOLERATED WELL. PT REPOSITIONED, LAYING ON L SIDE PER PT REQUEST. IV SITE REINFORCED WITH COBAN. PT DENIES FURTHER NEEDS AT THIS TIME. CALL LIGHT IN REACH.
--- NOTE | 2021-11-02 23:40 | NUR ---
CHECKED ON pt. EYES CLOSED. SOME SHIFTING OF LEGS IN BED. NO DISTRESS NOTED. BED ALARM ON.
--- NOTE | 2021-11-03 02:39 | NUR ---
pt RESTING IN BED ASLEEP, AWAKENS TO VOICE. INCONTINENT OF URINE AND SMALL SOFT BM. LINENS, ATTENDS, AND GOWN CHANGED. pt REPOSITIONED IN BED WITH PILLOWS UNDER EACH HIP. VSS. ASSESSMENT COMPLETE. UNCHANGED FROM START OF SHIFT. pt NOW ORIENTED TO PERSON, PLACE, NOT EVENT, DATE. REORIENTATION PROVIDED AND PLAN OF CARE REVIEWED. FACE WASHED WITH WARM WASH CLOTH. CALL LIGHT IN REACH. BED ALARM ON FOR SAFETY. WARM BLANKET PROVIDED.
--- NOTE | 2021-11-03 06:18 | NUR ---
pt RESTING IN BED SLEEPING. AWAKENS TO VOICE. VSS. NEURO CHECK UNCHANGED. NO MOVEMENT NOTED IN RIGHT ARM, HAND. WEAKNESS RIGHT FOOT. RIGHT FACIAL DROOP. DYSARTHIA NOTED. INCONTINENT OF URINE AND SMALL BM. ATTENDS CHANGED. HERNAN CARE COMPLETE. pt REPOSITIONED TO LEFT SIDE WITH PILLOW UNDER RIGHT HIP. SCHEDULED MEDICATION ADMINISTERED. CALL LIGHT IN REACH. IVF INFUSING WNL. NO ADDITIONAL NEEDS, pt CLOSING EYES RN LEAVES ROOM.
--- NOTE | 2021-11-03 06:48 | EKG ---
[facility] [address] [facility] [place] [address] Signed Sinus bradycardia Otherwise normal ECG When compared with ECG of 22-OCT-2021 14:27, Questionable change in QRS axis Nonspecific T wave abnormality no longer evident in Anterolateral leads Confirmed by BOBO FULLER MD ([id number]) on 11/03/2021 6:47:56 AM Electronically Signed By: BOBO FULLER MD 11/03/21 0648 PATIENT NAME: LOGAN LOPEZ Electrocardiogram DATE OF : 47 PHYSICIAN: BOBO FULLER MD REPORT #: [id number] REPORT IS CONFIDENTIAL AND NOT TO BE RELEASED WITHOUT AUTHORIZATION
--- NOTE | 2021-11-03 07:26 | NUR ---
this rn received report from pawel riojas. pt appears to be resting at this time. tele monitor in place. pt in 70's sr.
--- NOTE | 2021-11-03 08:18 | NUR ---
MED REC COMLETE
--- NOTE | 2021-11-03 08:35 | NUR ---
THIS RN IN PT SOROM TO GIVE MORNIN GMEDS. PT A BIT DROWSY THIS AM BUT COOPERATIVE WITH CARE.
--- NOTE | 2021-11-03 09:10 | NUR ---
INTO ROOM TO SPEAK WITH PATIENT. PATIENT JUST FINISHING WITH OT.PATIENT LAYING IN BED AWAKE WITH NOTICABLE R SIDED FACIAL DROOP. PATIENT ABLE TO ANSWER CASE MANAGEMENT ASSESSMENT QUESTION, BUT MOSTLY 1 WORD ANSWERS. PATIENT STATES SHE LIVES AT HOME WITH HER RAMIN. THEY LIVE IN A 1 LEVEL HOME WITH 2 STEPS LEADING INSIDE. PATIENT IS ABLE TO CONFIRM THAT THERE IS HANDRAILS IN PLACE. PATIENT DENIES THE USE OF DME AT HOME. NO FINANCIAL NEEDS. WHEN ASKING PATIENT IF SHE FEELS SAFE TO RETURN HOME, SHE REPLIES "SAFE." DISCUSSED PATIENT WITH KELSI MUELLER, SHE FEELS THAT PATIENT WILL LIKELY NEED SNIF PLACEMENT IF NO IMPROVEMENT. WILL WAIT FOR PT/ST EVAL AND MRI RESULTS FOR FURTHER DISCHARGE PLANNING.
--- NOTE | 2021-11-03 09:56 | NUR ---
PT OFF TO MRI
--- NOTE | 2021-11-03 10:20 | NUR ---
PT BACK FROM MRI. PT TOLERATED WELL. DANIELA RN IN PTS ROOM TO ASSIST THIS RN TO CHANGE PT. PT TOLERATED WELL HAS SOME CONTROL IN MOVEMENT OF HER RIGHT LEG. PT ABLE TO ANSWER QUESTIONS IN 1-5 WORD SENTENCES. FACIAL DROOP STILL NOTED. RIGHT ARM STILL NOTED TO BE WEAK WITH GROSS MOVEMETN
--- NOTE | 2021-11-03 12:30 | NUR ---
PT APPEARS TO BE RESTING AT THIS TIME. CALL LIGHT WITHIN REACH
--- NOTE | 2021-11-03 13:12 | NUR ---
PATIENT IN BED RESTING. VITALS AND I&O'S CHARTED. PATIENT HAD INCONT. VOID AND BM. HERNAN CARE DONE. NEW ATTENDS IN PLACE. CALL LIGHT IN REACH. NO FURTHER NEEDS AT THIS TIME.
--- NOTE | 2021-11-03 14:00 | NUR ---
THIS RN IN PTS ROOM TO GIVE PTS MEDS. PT STATES THAT SHE IS DOING WELL. PT IS HAVING EXPRESSIVE APHASIA TODAY MARTINA WHILE PT WAS ON PHONE WITH HER SON, PT WAS STRUGGLING TO GET HER WORDS OUT. PT ABLE TO LIFT LEG OFF OF BED SLIGHTLY BUT NOT ABLE TO KEEP OFF OF BED FOR LONG. PT NOT ABLE TO LIFT RIGHT ARM AT ALL. FACIAL DROOP UNCHANGED.
--- NOTE | 2021-11-03 18:10 | NUR ---
PTS AT BEDSIDE. PTS SYMPTOMS ARE UNCHANGED. PT NEEDS NOTHING AT THIS TIME.
--- NOTE | 2021-11-03 18:26 | NUR ---
PATIENT IN BED WATCHING TV, AT BEDSIDE. VITALS AND I&O'S CHARTED. ATTENDS CHANGED. HERNAN CARE DONE. CALL LIGHT IN REACH. NO FURTHER NEEDS AT THIS TIME.
--- NOTE | 2021-11-03 19:30 | NUR ---
REPORT RECEIVED FROM FEROZ TAN. pt RESTING IN BED AWAKE. REPOSITIONED HIGHER IN BED WITH TWO RN ASSIST. LIGHTS OFF REQUESTED. IVF INFUSING WNL. CALL LIGHT IN REACH. BED ALARM SET.
--- NOTE | 2021-11-03 21:00 | NUR ---
ASSISTED PRIMARY RN CRISTIAN. V/S, I&O'S AND BLOOD SUGAR CHECK DONE AND RECORDED.
--- NOTE | 2021-11-03 21:28 | NUR ---
pt RESTING IN BED AWAKE. PHONE CALL FOR , pt TALKING ON PHONE. ORIENTED TO PERSON, PLACE, EVENT. pt UNABLE TO STATE BIRTHDATE, STATES "YES" WHEN RN READS BIRTHDATE FROM [place]. NEURO CHECK COMPLETE. ORAL CARE OFFERED, pt REFUSES TO HAVE TEETH BRUSHED, CHAPSTICK APPLIED. ASSESSMENT COMPLETE. INCONTINENT OF URINE AND STOOL. ATTENDS, CHUX CHANGED. pt REPOSITIONED, RIGHT ARM ELEVATED ON PILLOW. REDNESS NOTED ON BUTTOCKS, BARRIER CREAM APPLIED. CALL LIGHT IN REACH. BED ALARM ON. LIGHTS OFF IN ROOM PER pt REQUEST.
--- NOTE | 2021-11-03 23:25 | NUR ---
NEW BAG IVF INFUSING WNL. pt RESTING IN BED WITH EYES CLOSED, BREATHING UNLABORED. NO DISTRESS NOTED. BED ALARM ON.
--- NOTE | 2021-11-04 02:30 | NUR ---
ASSISTED PRIMARY RN CRISTIAN CHANGED PATIENT'S INCONTINENT ATTEND OF URINE AND SMALL BOWEL MOVEMENT. BLOOD SUGAR CHECK DONE. PATIENT REPOSITIONED. CALL LIGHT IN REACH.
--- NOTE | 2021-11-04 02:40 | NUR ---
pt SLEEPING, AWAKENS TO VOICE. INCONTINENT OF URINE AND STOOL. ATTENDS AND CHUX CHANGED. ASSESSMENT COMPLETE. NEURO CHECK UNCHANGED. HR 77 ON TELE 6. REPOSITIONED FLOATING WITH PILLOWS UNDER EACH HIP. CBG COMPLETE, SS INSULIN ADMINISTERED. CALL LIGHT IN REACH. BED ALARM ON.
--- NOTE | 2021-11-04 06:37 | NUR ---
pt AWAKENS TO VOICE. VSS. INCONTINENT OF URINE, ATTENDS CHANGED. REPOSITIONED HIGHER IN BED WITH 2 PERSON ASSIST, TURNED TO LEFT SIDE WITH PILLOW UNDER RIGHT HIP. ASSISTED pt TO WASH FACE. SCHEDULED MEDICATION ADMINISTERED, IVF INFUSING WNL.
--- NOTE | 2021-11-04 07:31 | NUR ---
REPORT RECIEVED FROM CHICKEN CATCHER RNCRISTIAN.
--- NOTE | 2021-11-04 07:43 | NUR ---
ASSESSMENT DONE, PATIENT IMMEDIATELY BACK TO SLEEP. IVF INFUSING TO RIGHT WRIST, IV INTACT. PATIENT TO HAVE KCL IV REPLACEMENT FOR 2.9
--- NOTE | 2021-11-04 08:06 | NUR ---
PT RESTING IN BED. LEMON GLYCERIN SWAB GIVEN FOR MOUTH. CALL LIGHT IN REACH. WHITE BOARD UPDATED. NO FURTHER NEEDS AT THIS TIME.
--- NOTE | 2021-11-04 10:52 | NUR ---
PATIENT MINI-CATHED FOR U/A URINE SAMPLE.
--- NOTE | 2021-11-04 13:53 | NUR ---
PATIENT HAD INCONT. VOID. HERNAN CARE DONE. NEW ATTENDS IN PLACE. LINENS CHANGED. VITALS AND I&O'S CHARTED. CALL LIGHT IN REACH. NO FURTHER NEEDS AT THIS TIME. IN ROOM.
--- NOTE | 2021-11-04 14:46 | NUR ---
IN ROOM, DISCUSSION WITH PATIENT AND PLAN OF CARE. SPEECH THERAPY TO COME IN AT 3PM TO EVALUATE. DISCUSSED POSSIBLE OUTCOMES: DIET MODIFACATION, IMAGING STUDIES, TUBES FOR FEEDING, AND STROKE REHAB. QUESTION AND ANSWER WITH PATIENT AND SPOUSE. BLOOD GLUCOSE IS 222 AND 3 UNITS OF HUMILIN GIVEN. OT IN TO WORK WITH PATIENT, SIT/STANDS.
--- NOTE | 2021-11-04 15:52 | NUR ---
PATIENT HAD SPEECH EVALUATION, TO HAVE MINCED/MOIST DIET WITH MILDLY THICK LIQUIDS.
--- NOTE | 2021-11-04 16:36 | NUR ---
PATIENT ABLE TO TAKE HOME MEDICATIONS WITH APPLESAUCE. TELE D/C'D
--- NOTE | 2021-11-04 18:34 | NUR ---
PT AWAKE IN BED WATCHING TV. BRIEF CHANGED. PT REPOSITIONED ONTO LEFT SIDE. CALL LIGHT WITHIN REACH. NO FURTHER NEEDS AT THIS TIME.
--- NOTE | 2021-11-04 19:41 | NUR ---
RECEIVED REPORT FROM DAY SHIFT RN. PATIENT IS RESTING IN BED. AT BEDSIDE NO NEEDS NOTED. CALL LIGHT IN REACH.
--- NOTE | 2021-11-04 20:50 | NUR ---
ASSISTED PRIMARY RN TOMÁS. V/S AND I&O'S TAKEN AND RECORDED. CHANGED INCONTINENT ATTENDS. PATIENT REPOSITIONED. RN WAS WITH PATIENT.
--- NOTE | 2021-11-04 21:10 | NUR ---
PATIENT ASSESMENT COMPLETED. PATIENTS ATTEND CHANGED AND PATIENT WAS INCONTINENT OF STOOL AND URINE. PATIENT HAS REDNESS NOTED ON COCYX, NO SKIN BREAKDOWN NOTED, BARRIER CREAM AND ALLYVYN PLACED. PATIENT DENIES ANY PAIN. SCHEDULED MEDICATIONS GIVEN PER ORDER. PATIENTS IV INFUSING PER ORDER. PATIENT ABLE TO SWALLOW MEDICATION IN APPLESAUCE WITH NO ISSUES IN SWALLOWING NOTED. NO NEEDS NOTED. CALL LIGHT IN REACH.
--- NOTE | 2021-11-04 21:53 | NUR ---
PATIENT IS RESTING IN BED WITH EYES CLSOED, RR 17. CALL LIGHT IN REACH. BED ALARM ON FOR SAFETY.
--- NOTE | 2021-11-04 23:46 | NUR ---
PATIENTS PAD CAHNGED PATIENT WAS INCONTINET OF URINE. HERNAN CARE COMPLETED. BARRIER CREAM APPLIED. NO NEEDS NOTED. CALL LIGHT IN REACH. IV INFUSING PER ORDER. BED ALARM ON FOR SAFETY.
--- NOTE | 2021-11-05 05:38 | NUR ---
[facility] DOWN FROM [phone] TO [phone]. PLEASE SEE PAPER CHART.
--- NOTE | 2021-11-05 06:18 | NUR ---
MORNING VITALS TAKEN AND RECORDED. INTAKE AND OUTPUT RECORDED. ATTEND CRY AT THIS TIME. WESTON JULIEN PROVIDED SIPS OF WATER WITH SPOON. NO S/SX OF ASPIRATION NOTED. PATIENT DENIES ANY PAIN. IV INFUSING PER ORDER. PATIENT DENIES ANY NEEDS. CALL LIGHT IN REACH.
--- NOTE | 2021-11-05 07:20 | NUR ---
this rn received report from stormy riojas. pt appears to be resting at this time with respirations noted. call light appears to be within reach
--- NOTE | 2021-11-05 08:30 | NUR ---
Discussed in [address] Norman she would like her to go to an IP rehab. Discussed with therapies and Dr. Norman if pt can tolerate 3 hours of rehab. All think this is possible. Will speak with pt to see if she would go to an IP rehab.
--- NOTE | 2021-11-05 08:40 | NUR ---
this rn in pts room to give pt morning meds. pt sitting up in bed and working with speech therapy. pt tolerating eating and swallowing well with no aspiration noted. pt able to take pills with applesauce and toerlating well. pts neuro still appears to only have gross motor movement in right lower leg, right arm flaccid, right facial droop appears unchanged, pt still able to answer questions appropriatley but is slow to respond and speech is mumbled, occasionally appears to have trouble finding her specific words
--- NOTE | 2021-11-05 10:00 | NUR ---
Spoke with Renetta, OT is working with pt. She states she welcomes the interuption as pt is becoming frustrated. Discussed IP rehab and pt will consider, but would like to speak with her . She agrees to chart being sent. I called and spoke with [facility]. She states they do have beds open and have been given to go ahead to accept outside pts. She requests a chart. FAce sheet, H&P, progress notes, med list, serology report, PT/OT/ ST notes all faxed to Lucía.
--- NOTE | 2021-11-05 11:00 | NUR ---
PT OFF TO SWALLOW STUDY AT THIS TIME.
--- NOTE | 2021-11-05 11:17 | NUR ---
PT WAS ABLE TO STAND AND PIVOT TO BSC WITH MAX 2PA AND IS SITTING ON EDGE OF BED WAITING FOR IMAGING. PT WAS INC OF BLADDER BUT CONTINENT OF BOWEL. PT IS HAPPY AND SMILING. AT BEDSIDE. NO FURTHER NEEDS AT THIS TIME.
--- NOTE | 2021-11-05 13:00 | NUR ---
Received a call from [facility], she states their team will review the chart. She has questions regarding where pt will dc when rehab is complete. UPdated pt lives with spouse and daughter lives in town. Both help pt as needed. Also updated. Dr. Norman had requested I tell them, pt was at [facility] and transfered to [facility] for her last admission. They can review those records also. [facility] will call me tomorrow and let me know if they can accept this pt. Updated I spoke with Dr. Norman and pt is dischargable tomorrow or Wednesday if they can accept.
--- NOTE | 2021-11-05 14:30 | NUR ---
THIS RN IN TO CHECK ON PT. PT JUST FINISHED WORKING WITH PHYSICAL THERAPY. PTS ONLY REQUEST WAS MORE WATER. THIS RN THICKENED PTS WATER PER ORDERS.
--- NOTE | 2021-11-05 14:40 | NUR ---
PT IN BED, VISITING WITH RAMIN. BOTH PLEASANT, NOTICABLE FACIAL DROOP ON PT. PT ANSWERS WITH SHORT, BRIEF ANSWERS. RAMIN SEEMS VERY SUPPORTIVE. HE WAS READING TO HER WHEN I ENTERED. THEY BOTH ADMITTED THEY HAVE NOT BEEN TO THEIR [facility], AND SEEMED PLEASED I WOULD CONTACT THEIR RADIOPHARMACIST. CONTACT MADE, COMING THIS AFTERNOON. HAD PRAYER WITH BOTH AND GAVE G.POST. WILL FOLLOW
--- NOTE | 2021-11-05 21:10 | NUR ---
ASSISTED PT. WITH HERNAN CARE, WHITE BOARD UPDATED. ASSISTED PT. WITH DRINKING WATER. TOOK PT. BS. CALL LIGHT LEFT WITHIN REACH. NO OTHER IMMEDIATE NEEDS AT THIS TIME.
--- NOTE | 2021-11-05 21:25 | NUR ---
PATIENT ASSESMENT COMPLETED. PATIENTS ATTEND CHANGED AND SHE WAS INCONTINENT OF URINE. PATIENT REPOSITIONED IN BED. PATIENT PROVIDED WITH SIPS OF WATER SITTING HIGH UP IN BED WITH A SPOON. PATIENT HAD NO S/SX OF ASPIRATION NOTED. PATIENT TOOK HER EVENING PILLS IN APPLESAUCE. PATIENTS IV INFUSING PER ORDER. PATIENT DENIES ANY FURTHER NEEDS. CALL LIGHT IN REACH. BED ALARM ON FOR SAFETY.
--- NOTE | 2021-11-05 23:44 | NUR ---
PATIENT REPOSITIONED IN BED. PATIENT DENIES ANY NEEDS. CALL LIGHT IN REACH. BED ALARM ON FOR SAFETY.
--- NOTE | 2021-11-06 01:18 | NUR ---
ATTENDS DRY AT THIS TIME. PATIENT REPOSITIONED IN BED. IV INFUSING PER ORDER. NO NEEDS NOTED. CALL LIGHT IN REACH. BED ALARM ON FOR SAFETY.
--- NOTE | 2021-11-06 02:22 | NUR ---
PATIENTS ATTEND CHANGED. PATIENT WAS INCON OF URINE. WHEN PATIENT STRETCHED IT WAS NOTED HER RIGHT UPPER ARM LIFTED OFF THE BED. PATIENT UNABLE TO REPLICATE MOVEMENT OR SQUEEZE MY HAND. THEN AGAIN WHEN ROLLING DURING HER ATTEND CHANGE IT WAS NOTED BY THIS RN AND CODEY RN HER ARM RAISED SHE TURNED. PATIENT REPOSITIONED. PATIENT DENIES ANY NEEDS. CALL LIGHT IN REACH.
--- NOTE | 2021-11-06 03:29 | NUR ---
PATIENT IS RESTING IN BED WITH EYES CLOSED, RR 17. CALL LIGHT IN REACH.
--- NOTE | 2021-11-06 05:49 | NUR ---
PATIENTS VITALS TAKEN AND RECORDED. PATIENT INCONT OF URINE, ATTEND CHANGED, AND HERNAN CARE COMPLETED. PATIENT DENIES ANY PAIN. PATIENTS INTAKE AND OUTPUT RECORDED. IV IN FUSING PER ORDER. PATIENT REPOSITIONED IN BED. PATIENT PROVIDED SIPS OF WATER WITH SPOON. NO NEEDS NOTED. CALL LIGHT IN REACH.
--- NOTE | 2021-11-06 05:50 | NUR ---
PATIENT RESTED WELL THROUGHOUT THE SHIFT. PATIENT IS ON A MINCED/MOIST DIET WITH MOD THICK LIQUIDS. PATIENT REQUIRES ASSISTANCE WITH FEEDING. ASP PRECAUTIONS IN PLACE. WORKING WITH PT/OT/ST. PATIENT HAS BS AND SS PER ORDER. IV INFUSING PER ORDER. PILLS IN APPLESAUCE. PATIENT IS ON RA. HEEL PROTECOTRS IN PALCE. TURN Q2. ORAL CARE PRN. RIGHT SIDED DEFECITS FROM CVA.
--- NOTE | 2021-11-06 07:50 | NUR ---
report recieved from certified medical assistant RN , pt in bed getting cleaned up by cnas, cva pt, R side deficit no needs at the moment
--- NOTE | 2021-11-06 07:55 | NUR ---
PT WAS IN THE BED. THIS WOOD [employer] WOOD [employer]ODUCTS LABOURER AND WOOD AND WOOD PRODUCTS LABOURERDennise MULLEN GOT PT UP INTO THE CHAIR. PILLOWS WERE PLACED UNDER THE PT'S ARMS. HEAL PROTECTORS WERE PLACED ON. BED WAS MADE. WHITEBOARD UPDATED. CALL LIGHT IS WITHIN REACH. NO FURTHER NEEDS AT THIS TIME.
--- NOTE | 2021-11-06 09:00 | NUR ---
RN IN ROOM TO DO MORNING ASSESSMENT, HVAC LEAD HELGA WORKING WITH PT, R SIDE DEFICIT, NO PAIN AT THE MOMENT CONTINUE TO MONITOR,
--- NOTE | 2021-11-06 09:00 | NUR ---
Spoke with Renetta, she is working with Sudha from OT. UPdated [facility] has accepted her for tomorrow. Lengthy discussion followed with Sudha and what therapies she will recieve. She also wanted to know if she will have a private room. Per Dr. Norman all rooms are private and therapists are the same as the Hospital therapist. Pt agrees to go and we discussed transport. We all feel [facility] is the safest and pt agrees. She states she will need to speak with her to make sure he agrees. I will set up transport for tommorrow.
--- NOTE | 2021-11-06 10:00 | NUR ---
RN IN ROOM TO HELP THERAPY WORK WITH PT ABLE TO SIT STAND WITH GB AND WALKER
--- NOTE | 2021-11-06 10:04 | NUR ---
Spoke with rodrick Spicer about courtesy transport per [facility] as pt had stated concern of ability to pay $90. Juliet authorized payment as courtesy transport. Called the [facility] for transport and they will transport pt at 1 pm tomorrow. Called pts spouse, and discussed IP rehab vs OP. He states he feels this is pts best option and will discuss with her. UPdated pt will go by [facility]. He is pleased as he states concern to drive to [place].
--- NOTE | 2021-11-06 10:40 | NUR ---
STUDENT NURSE IN WITH PATIENT. PATIENT UPRIGHT IN CHAIR. VITAL SIGNS OBTAINED. PATIENT ENCOURAGED TO USE CALL LIGHT.
[2021-11-06] MEDS ORDERED: ENOXAPARIN40 MG/0.4 SUB-Q (12:00)
--- NOTE | 2021-11-06 12:00 | NUR ---
Spoke with Lucía from [facility]. Received phone number for Doc to Doc report [phone] Dr. Guzman and gave to Dr. Norman. Update Lucía, pt will transport tomorrow at 1300. I will fax orders when completed by Dr. Norman.
[2021-11-06] MEDS ORDERED: ASPIRIN325 MG PO (12:01)
--- NOTE | 2021-11-06 12:12 | NUR ---
RN IN ROOM WITH ARMOR RECONNAISSANCE VEHICLE DRIVER TO DO LUNCH TIME INSULIN IV POTASSIUM STARTED, NO OTHER NEEDS. ANIL MOODYA IN ROOM HELPING PT EAT LUNCH
--- NOTE | 2021-11-06 12:44 | NUR ---
PT ALERT, ORIENTD AND SITTING IN CHAIR. PT INFORMED ME SHE WILL BE TRANSFERRED TO [facility]. GAVE ENCOURAGEMENT, SHE MENTIONED SHE WAS PLEASED HER BOBBIN COIL WINDER CAME BY [facility]. WOULD LIKE FOR ME TO INFORM HIM SHE WILL BE GOING TO [facility]. HAD PRAYER WILL FOLLOW
--- NOTE | 2021-11-06 13:00 | NUR ---
RN IN ROOM ROUND ON PT SITTING UP IN CHAIR DENIES ANY NEEDS AT THE MOMENT
--- NOTE | 2021-11-06 13:38 | NUR ---
Notified by Dr. Norman Doc to Doc report was completed and received written orders for IP rehab.
--- NOTE | 2021-11-06 14:03 | NUR ---
STUDENT NURSE AND ANIL JULIEN IN WITH PATIENT. ASSISTED PATIENT BACK TO BED, TOLERATED WELL. COMPLETED BED BATH FOR PATIENT. BRIEF AND GOWN CHANGED, TOLERATED WELL. BED IN LOW POSITION, CALL LIGHT AND PHONE WITHIN REACH OF PT. WILL CONTINUE TO MONITOR.
--- NOTE | 2021-11-06 14:09 | NUR ---
Faxed Orders, progress notes, telestroke notes, Modified barium swallow report to Lucía. Noted I will send the covid test and dc summary when completed.
--- NOTE | 2021-11-06 14:24 | NUR ---
RN IN ROOM TO HANG IV MAG PT RESTING IN BED, RAMIN AT BEDSIDE
--- NOTE | 2021-11-06 16:07 | NUR ---
RT COLLECTED RAPID COVID 19 SWAB, FLU SWAB, AND RSV SWAB USING IN HOUSE LAB WITH NO COMPLICATIONS AT THIS TIME.
--- NOTE | 2021-11-06 17:22 | NUR ---
rn in room with nursing education specialist to do 1700 medications, 5 units of insulin given for a blood glucose of 229
--- NOTE | 2021-11-06 17:43 | NUR ---
STUDENT NURSE AND GABY RN IN WITH PATIENT. PATIENT WAS LAYING SUPINE IN BED. READJUSTED PATIENT TO SEMIFOWLERS POSITION TO EAT DINNER. MEDICATION ADMINISTERED ORDERED. STUDENT NURSE SUPERVISED WHILE PATIENT ATE. PATIENT TOLERATED EATING ON OWN VERY WELL. BED IN LOW POSITION AND CALL LIGHT WITHIN REACH OF PATIENT. WILL CONTINUE TO MONITOR.
--- NOTE | 2021-11-06 19:25 | NUR ---
SHIFT REPORT RECEIVED FROM DAYSHIFT FEROZ GRIFFIN AT BEDSIDE. pt AWAKE AND RESTING IN BED, IV POTASSIUM RIDER INFUSING DIRECTED, IV SITE WNL. pt DENIES PAIN AT IV SITE. NO NEEDS OR CONCERNS VERBALIZED, CALL LIGHT INR EACH AND ASLO IN ROOM.
--- NOTE | 2021-11-06 20:43 | NUR ---
Patient said they drank 200mls of their drink at around 1800. Patient's is in the room. Patient is in bed. Call light is in reach. Vitals and I&Os are complete. BP was 163/60. MAP was 88. Left arm. RN was notified.
--- NOTE | 2021-11-06 21:00 | NUR ---
LAB IN ROOM TO COLLECT ORDERED EVENING LAB DRAW.
--- NOTE | 2021-11-06 21:50 | NUR ---
ASSESSMENT COMPLETE, pt AWAKE AND RESTING IN BED. A/O TO SELF, BUT UNABLE TO VERBALIZE BIRTHDAY. RIGHT SIDED FACIAL DROPP REMAINS IN PLACE ALONG WITH RIGHT SIDED WEAKNESS. pt GIVEN MEDS CRISHED IN APPLESAUCE, NO ISSUES SWALLOWING NOTED. pt COMPLAINT WITH CARE, IV SITE WNL AND SALINE LOCKED. NO FURTHER NEEDS, CALL LIGHT IN REACH.
--- NOTE | 2021-11-06 22:30 | NUR ---
IN WITH SECOND SODA DRY HOUSE OPERATOR, CHANGED PTs ATTENDS AND CHUX, NEW GOWN IN PLACE, PILLOW UNDER PTs ARMS FOR COMFORT, NO FURTHER NEEDS AT THIS TIME, LAB NOW IN TO SEE PT, CALL LIGHT AND WATER IN REACH
--- NOTE | 2021-11-06 22:50 | NUR ---
LAB RETURNED TO COMPLETE ORDERED LAB DRAW.
--- NOTE | 2021-11-07 00:53 | NUR ---
pt RESTING IN BED WITH EYES CLOSED, RR EVEN AND UNLABORED. ASPIRATION PRECAUTIONS IN PLACE, CALL LIGHT IN REACH. NO DISTRESS NOTED.
--- NOTE | 2021-11-07 02:05 | NUR ---
pt INCONTINENT OF LARGE AMOUNT URINE, HERNAN CARE DONE AND DRY ATTENDS IN PLACE. pt BOOSTED IN BED, BILATERAL HEEL PROTECTORS IN PLACE. pt UNABLE TO REPORT NAME OR , BUT WHEN GIVEN LIST OF NAMES, pt ABLE TO PICK CORRECT FIRST AND LAST NAME. WEAKNESS REMAINS NOTED TO RLE, pt UNABLE TO FOLLOW COMMANDS WHEN SQUEEZING RIGHT HAND. RIGHT SIDED FACIAL DROOP REMAINS. NO NEW CHANGES OR CONCERNS. NO FURTHER NEEDS, CALL LIGHT IN REACH. BED ALARM ON.
--- NOTE | 2021-11-07 04:09 | NUR ---
pt RESTING IN BED, EYES CLOSED. pt REMAINS ON RA, RR EVEN AND UNLABORED. NO DISTRESS NOTED. CALL LIGHT IN REACH AND BED ALARM ON.
--- NOTE | 2021-11-07 04:50 | NUR ---
in to get vs
--- NOTE | 2021-11-07 05:06 | NUR ---
VSS AND I&O'S COMPLETE. CPOX REMAINS IN PLACE, pt ON RA. RR EVEN AND UNLABORED. pt UP SBA TO VOID AND IS BACK IN BED. SCD'S IN PLACE. IV FLUIDS HUNG, SITE WNL. FRESH HOT WATER PROVIDED, NO FURTHER NEEDS, CALL LIGHT IN REACH.
--- NOTE | 2021-11-07 05:15 | NUR ---
rn in to assist the ad operations intern with changing pt and repositoning, rm tidied at this time, no further needs, pt provided with fresh water, mod thickness per diet
--- NOTE | 2021-11-07 05:21 | NUR ---
vss and i&o's complete. pt incontinent of urine, roseline care done and dry attends in place. pt able to assit with turning. reddened roseline area and buttocks noted. barrier cream applied and bilateral hips floated. reddness blanchable to buttocks. no further needs, electric meter inspector kenny replaced thickened water per md diet orders. bed alarm on for safety and call light in reach.
--- NOTE | 2021-11-07 07:30 | NUR ---
REPORT RECIEVED FROM GAS REVERSER RN, PT RESTING IN BED, CALL LIGHT WITHIN REACH NO NEEDS A THE MOMENT, CHIMNEY REPAIRER HELGA ALSO HERE WITH RN
--- NOTE | 2021-11-07 08:00 | NUR ---
Faxed DC summary, -covid test, Med list for 11/07/21. All originals including rx placed in evelope and taken to nurses station to go with pt.
--- NOTE | 2021-11-07 08:40 | NUR ---
STUDENT NURSE AND PAZ JULIEN IN WITH PT. PT WAS LAYING IN BED. MEDICATIONS GIVEN ORDERED WITH VIJAYA REDMAN. PT REFUSED SHOWER BUT ALLOWED BRIEF TO BE CHANGED. PT UP TO CHAIR TO EAT BREAKFAST AND WORK WITH SPEECH THERAPY, TOLERATED WELL. LINEN CHANGED. WILL CONTINUE TO MONITOR.
--- NOTE | 2021-11-07 09:00 | NUR ---
RN IN ROOM TO ROUND ON PT SITTING UP IN BED EATING BREAKFAST DIVERSITY MANAGER IN ROOM ADMINISTERING MEDICATIONS. NO NEEDS ATH THE MOMENT
--- NOTE | 2021-11-07 11:00 | NUR ---
pt sitting up in chair warm blanket provided, no other needs at the moment
--- NOTE | 2021-11-07 11:09 | NUR ---
Call from Lucía checking if there are any changes. She received my fax of orders yesterday and this morning. UPdated pt will leave at 1300 per van. is aware of visiting policy and will go over today.
--- NOTE | 2021-11-07 11:58 | NUR ---
PT ALERT, SMILING SITTING IN CHAIR. STILL NOTICABLE FACIAL DROOP. PT STATED SHE HAD SOME ANXIETY ABOUT TRANSFERING TO [facility]. GAVE ENCOURAGEMENT NOTICED A CARD FROM HER AND [employer].PT REQUESTED PRAYER. WILL FOLLOW
--- NOTE | 2021-11-07 12:00 | NUR ---
Spoke with pt and spouse and wished a good trip. Nurse to Nurse report given to Alida REDMAN.
--- NOTE | 2021-11-07 12:20 | NUR ---
rn and advanced nursing professor caitlin in room to help pt get dressed for ddischarge iv removed
--- NOTE | 2021-11-07 12:54 | NUR ---
STUDENT NURSE IN WITH PT. PT DRESSED AND BRIEF CHANGED PRIOR TO DISCHARGE. PERSONAL ITEMS PACKED FOR DISCHARGE.
--- NOTE | 2021-11-07 13:00 | NUR ---
report called to yan at [facility]
== END 2021-11-07 12:57 | DRG 65 ==
LOC: ED 07:10 → MS 10:19
PROVIDERS: ADMIT Internal Medicine; ATTEND Internal Medicine
DX: I63.9 Cerebral infarction, unspecified (principal); G81.91 Hemiplegia, unspecified affecting right dominant side; E27.1 Primary adrenocortical insufficiency; E03.9 Hypothyroidism, unspecified; E11.9 Type 2 diabetes mellitus without complications; Z90.710 Acquired absence of both cervix and uterus; R29.810 Facial weakness; E87.6 Hypokalemia; E83.42 Hypomagnesemia; I65.8 Occlusion and stenosis of other precerebral arteries; I27.20 Pulmonary hypertension, unspecified; I10 Essential (primary) hypertension; Z20.822 Contact with and (suspected) exposure to COVID-19; E78.5 Hyperlipidemia, unspecified; Z86.16 Personal history of COVID-19; R29.713 NIHSS score 13; J44.9 Chronic obstructive pulmonary disease, unspecified; Z79.899 Other long term (current) 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; Z98.890 Other specified postprocedural states
CPT/HCPCS: 36415; 51701; 70450; 70496; 70498; 70551; 71045; 74230; 80048; 80053; 80061; 81001; 82465; 83718; 83735; 84132; 84484; 85025; 85610; 85730; 87088; 92526; 92610; 92611; 93005; 93010; 97110; 97112; 97140; 97162; 97167; 97530; 97535; 99285-25; C9113; C9803; J1650; J1720; J1815; J3475; J3480; J7030; J7060; Q9967; U0003

== ENCOUNTER 2023-10-16 19:35 | Inpatient (IN) | payer MEDICARE, OTHER ==
[~2023-10-16] VITALS: Ht 154.9 cm; Wt 58.5 kg
[~2023-10-16 19:35] MED LIST changes: +ASPIRIN325 MG PO; +ELIQUIS5 MG PO; +ENOXAPARIN40 MG/0.4 SUB-Q; +FIBERCON1 TABLET PO; +GABAPENTIN100 MG PO; +HYDROCORTISONE5 MG PO; +LISINOPRIL10 MG PO; +LOPERAMIDE2 MG PO; +MAG-OXIDE400 MG PO; +MELATONIN10 M2 PO; +PANTOPRAZOLE SO40 MG PO; +POTASSIUM CHLO20 ME1 PO; +TYLENOL325 MG PO
[2023-10-16 20:18] LABS: BASOPHILS 0.9 % (0-2); EOSINOPHILS 4.7 % (0-6); HEMATOCRIT 32.8 % (35.0-50.0); HEMOGLOBIN 10.8 g/dL (12.0-18.0); LYMPHOCYTES 43.3 % (24-44); MCH 26.5 (27-36); MCHC 32.9 g/dl (30-36); MCV 80.7 fl (81-99); MONOCYTES 10.4 % (0-12); NEUTROPHILS 40.7 % (39-80); PLATELET COUNT 393 K/uL (140-440); RBC 4.06 M/ul (4.3-5.7); RDW 16.6 (10.5-15.0)
[2023-10-16 20:32] LABS: BILIRUBIN, URINE NEGATIVE (negative); BLOOD/HGB, URINE NEGATIVE (Negative); KETONE, URINE TRACE (Negative); LEUK ESTERASE, URINE SMALL (negative); NITRITE, URINE POSITIVE (negative)
[2023-10-16 20:41] LABS: ALBUMIN 3.3 g/dL (3.4-5.0); ALBUMIN/GLOBULIN RATIO 0.92 (1.1-2.4); ANION GAP 16.7 (7-21); BILIRUBIN, TOTAL 0.4 ng/dL (0.2-1.0); BUN/CREATININE RATIO 16.37 (6.0-28.6); CALCIUM 9.7 mg/dL (8.5-10.1); CREATININE, SERUM 1.16 mg/dL (0.55-1.02); POTASSIUM 4.7 mmol/L (3.5-5.1); PROTEIN, TOTAL 6.9 g/dL (6.4-8.2); TSH, 3RD GENERATION 10.113 uIU/mL (0.358-3.740)
[2023-10-16 20:43] LABS: PARTIAL THROMBOPLASTIN TIME 34.2 Sec (22.9-41.3)
[2023-10-16 20:44] LABS: BACTERIA, URINE 4+ /hpf (negative); CASTS, URINE HYALINE 1+ \\lpf; CRYSTALS, URINE NONE SEEN (0-1+); EPITHELIAL CELLS, URINE SQUAMOUS 1+ /lpf (0-1+); REFLEX CULTURE, URINE Yes (No)
[2023-10-16 20:44] LABS: INR 1.31 (0.80-1.30); PROTIME 15.5 Sec (11.2-14.2)
[2023-10-16 20:45] LABS: COLLECTION TYPE, URINE CLEAN CATCH
[2023-10-16 22:44] VITALS: BP 127/76
--- NOTE | 2023-10-16 22:49 | NUR ---
2235 - pt admitted to room 111, R sided facial droop and R arm weakness and contractures at fingers, strong LE. clear speech. Inc of urine, attend changed, SL LFA patent
--- NOTE | 2023-10-16 23:25 | NUR ---
PT COOPERATIVE WITH ASSESSMENT, GARBLED SPEECH AT TIMES, CLEAR WITH SOME ANSWERS. RASH UNDER R SIDED DROOP. ORAL CARE DONE. CONTACTURE OF R HAND PRESENT, R SIDED RESIDUAL WEAKNESS FROM PREVIOUS STROKE. REPOSITIONED AND TURNED IN BED, HOB AND LE ELEVATED
[2023-10-17] VITALS (11 sets, daily range): BP systolic 93–112; BP diastolic 44–67
--- NOTE | 2023-10-17 00:01 | EKG ---
[facility] [address] [facility] [facility] [address] [place] [address] Signed Normal sinus rhythm Delayed transition Nonspecific T wave abnormality Confirmed by Simeon James M.D. ([id number]) on 10/17/2023 12:00:53 AM Electronically Signed By: SIMEON JAMES 10/17/23 0001 PATIENT NAME: LOGAN LOPEZ Electrocardiogram DATE OF : 47 PHYSICIAN: SIMEON JAMES REPORT #: [id number] REPORT IS CONFIDENTIAL AND NOT TO BE RELEASED WITHOUT AUTHORIZATION
--- NOTE | 2023-10-17 00:06 | NUR ---
RESTING, NO DISTRESS, ON ROOM AIR, PURE WICK IN PLACE, DRAINING CLEAR URINE WITH SEDIMENTS. LE ELEVATED
--- NOTE | 2023-10-17 02:19 | NUR ---
Awakes easwily, rex CP or SOB, pleasantly confused, speech clear at this time. Repositioned. Pure wick in place, draining clear yellow QS urine.
--- NOTE | 2023-10-17 04:04 | NUR ---
resting, eyes closed, pure wick in place, no s/sx pain, Repositioned
[2023-10-17 05:26] LABS: BASOPHILS 1.3 % (0-2); HEMOGLOBIN 9.8 g/dL (12.0-18.0); LYMPHOCYTES 47.1 % (24-44); MCH 26.5 (27-36); MCHC 32.7 g/dl (30-36); MCV 80.9 fl (81-99); MONOCYTES 13.3 % (0-12); NEUTROPHILS 33.3 % (39-80); PLATELET COUNT 356 K/uL (140-440); RBC 3.71 M/ul (4.3-5.7); RDW 16.8 (10.5-15.0)
--- NOTE | 2023-10-17 05:31 | NUR ---
Pt admitted earlier this shift from ED. pt is from home with . Pleasantly confused and forgetful, aware of name only. garbled speech at times. R mouth droop. Her R hand and fingers were contracted and stiff on admission, R sided weakness. at tthis time able to open hands and fingers are more flexible opening and bending easily. Inc of urine and bowels at baseline. Attends in place, Pure wick replaced at this time, patent, draining yellow colored urine, it had lots of sediment at first, now more clear. NPO. mouth care done. Barrier lotion applied to red areas R lip corner. Repositioned nad turned Q2H. Cooperative, slow verbal response. no s/sx chest pain
[2023-10-17 05:36] LABS: ANION GAP 16.3 (7-21); BUN/CREATININE RATIO 16.25 (6.0-28.6); CALCIUM 9.1 mg/dL (8.5-10.1); CREATININE, SERUM 0.8 mg/dL (0.55-1.02); POTASSIUM 4.3 mmol/L (3.5-5.1)
--- NOTE | 2023-10-17 07:15 | NUR ---
REPORT RECEIVED FROM PLATER PRINTED CIRCUIT BOARD PANELS RN IRMA. PATIENT WOKE UP UPON ENTERING THE ROOM. PATIENT IS ALERT AND ORIENTED TO SELF AT THIS TIME. PATIENT STATED NO FURTHER NEEDS AT THIS TIME. CALL LIGHT AND PERSONAL BELONGINGS ARE WITHIN REACH.
[2023-10-17] MEDS ORDERED: LEVOTHYROXINE88 MCG PO (08:24)
--- NOTE | 2023-10-17 10:16 | NUR ---
BEDSIDE SWALLOW PERFORMED PER . PT PASSES, NO COUGHING OR CHOKING OBSERVED. DIET ADVANCED.
--- NOTE | 2023-10-17 10:55 | NUR ---
0800 AND 0900 MEDICATIONS ADMINISTERED PER THE EMAR. PATIENT MOST RECENT BLOOD PRESSURE WAS 96/44 WITH A MAP OF 54 AND URINE OUTPUT IS MINIMAL. NOTIFIED AND IV FLUIDS ARE NOW INFUSING AT 100 ML/HR. PATIENT LUNG SOUNDS ARE CLEAR IN ALL LUNG KINSEY BILATERALLY. PATIENT IS ON ROOM AIR. PATIENT WITH NORMAL S1 AND S2 ON AUSCULTATION. RADIAL PULSES ARE STRONG BILATERALLY. PATIENT IS ONLY ORIENTED TO SELF AT THIS TIME. PATIENT BOWEL TONES ARE ACTIVE IN ALL FOUR QUADRANTS. BEDSIDE SWALLOW STUDY COMPLETE AND SOME FOOD GOT BROUGHT UP FOR HER. PATIENT REFUSED TO EAT AT THIS TIME. PATIENT STATED NO PAIN AND NO NUMBNESS AND TINGLING AT THIS TIME. PATIENT IV SITE IS CLEAN, DRY, AND INTACT. PATIENT SKIN LOOKS INTACT. PATIENT STATED NO FURTHER NEEDS AT THIS TIME. CALL LIGHT AND PERSONAL BELONGINGS ARE WITHIN REACH.
--- NOTE | 2023-10-17 11:16 | NUR ---
PATIENT CALLED THE NURSES STATION FOR AN UPDATE. PATIENT SPOUSE EXPRESSED CONCERN DUE TO PATIENT STRUGGLING TO VERBALIZE THEIR THOUGHTS. PATIENTS SPOUSE REASSURED. PATIENT SPOUSE NOTIFIED OF VISITING HOURS AND WHEN THEY COULD SPEAK TO THE DOCTOR. PATIENT SPOUSE NOTIFIED THAT THE HOSPITALISTS SWITCH AT 3 PM TODAY. PATIENT SPOUSE STATED NO FURTHER NEEDS. CALL ENDED.
--- NOTE | 2023-10-17 12:29 | NUR ---
PATIENT IS SITTING UPRIGHT IN BED AND JUST FINISHED WORKING WITH PHYSICAL THERAPY. PATIENT WITH IV FLUIDS INFUSING AT THIS TIME. PATIENT STATED NO FURTHER NEEDS AT THIS TIME. CALL LIGHT AND PERSONAL BELONGINGS ARE WITHIN REACH.
--- NOTE | 2023-10-17 14:26 | NUR ---
PATIENT BRIEF CHANGED. PATIENT X1 VOID AND X1 BOWEL MOVEMENT. NEW PUREWICK IN PLACE. PATIENT STATED NO PAIN AT THIS TIME. SKIN WITH REDDENED AREA ABOVE THE COCCYX OPEN TO AIR AND BLANCHABLE. PATIENT WITH A SMALL BRUISE ABOVE THE LEFT BUTTOCKS. PATIENT IS ALERT AND ONLY ORIENTED TO SELF AT THIS TIME. PATIENT DID NO EAT ANYTHING FROM HER LUNCH TRAY BUT WAS GIVEN AN ENSURE. PATIENT STATED NO FURTHER NEEDS AT THIS TIME. CALL LIGHT AND PERSONAL BELONGINGS ARE WITHIN REACH.
--- NOTE | 2023-10-17 16:06 | NUR ---
PATIENT 1500 MEDICATIONS ADMINISTERED PER THE EMAR. PATIENT IS GOING DOWN TO THE [place] TO GET HER SOMETHING TO EAT. PATIENT BOOSTED UP IN BED AND REPOSITIONED. PATIENT STATED NO FURTHER NEEDS AT THIS TIME. CALL LIGHT AND PERSONAL BELONGINGS ARE WITHIN REACH.
--- NOTE | 2023-10-17 18:16 | NUR ---
PATIENT IS SITTING UPRIGHT IN BED WITH THE HOB OF ELEVATED. PATIENT IS AT THE BEDSDIE. PATIENT AND ARE WATCHING TV. PATIENT WITH CALL LIGHT AND PERSONAL BELONGINGS ARE WITHIN REACH.
--- NOTE | 2023-10-17 18:35 | NUR ---
PATIENT WITH QUANTITY SUFFICIENT URINE BUT CONCENTRATED THROUGHOUT THE DAY. RN CALLED AND GOT A NEW ORDER FOR CONTINUOUS FLUIDS. MD STATED HE WOULD PUT THE ORDER IN. NO FURTHER ORDERS AT THIS TIME. CALL ENDED. PATIENT LEFT FOR THE EVENING. PATIENT REPOSITIONED AND FLAOTING ON PILLOWS. PATIENT STATED NO FURTHER NEEDS AT THIS TIME. CALL LIGHT AND PERSONAL BELONGINGS ARE WITHIN REACH.
--- NOTE | 2023-10-17 20:57 | NUR ---
PATIENT IS RESTING IN BED. PATIENT INCON OF STOOL AND URINE. PATIENTS ATTEND CHANGED, HERNAN CARE COMPLETED, BARRIER CREAM APPLIED, AND NEW ATTEND IN PLACE. PATIENTS VITALS TAKEN AND RECORDED. INTAKE AND OUTPUT RECORDED. NEW PUREWICK IN PLACE. PATIENT REPOSITIONED IN BED. PATIENTS PM MEDS GIVEN PER ORDER. PATIENT DENIES ANY PAIN OR SOB. PATIENT PROVIDED SIPS OF WATER. NO S/SX OF ASPIRATION NOTED. PATIENT DENIES ANY FURTHER NEEDS CALL LIGHT IN REACH. PLACED CALL TO PATIENTS AND RECIEVE TELEPHONE CONSENT. LEILA AND MIKE REDMAN VERIFIED PHONE CONSENT.
--- NOTE | 2023-10-17 22:09 | NUR ---
PATIENT REPOSITIONED IN BED. PATIENT DENIES ANY NEEDS. CALL LIGHT IN REACH. IV INFUSING PER ORDER. BED ALARM ON FOR SAFETY.
[2023-10-18] VITALS (7 sets, daily range): BP systolic 116–146; BP diastolic 54–76
--- NOTE | 2023-10-18 00:11 | NUR ---
PATIENT REPOSITIONED WITH PILLOW UNDER RIGHT HIP. PATIENT TOLERATED ACTIVITY WELL. PATIENT DENIES ANY NEEDS. CALL LIGHT IN REACH. IV INFUSING PER ORDER. BED ALARM ON FOR PATIENT SAFETY.
--- NOTE | 2023-10-18 02:04 | NUR ---
PATIENT IS RESTING IN BED WITH EYES CLOSED, RR 15. CALL LIGHT IN REACH. BED ALARM ON FOR SAFETY. IV INFUSING PER ORDER.
--- NOTE | 2023-10-18 04:15 | NUR ---
PATIENT IS RESTING IN BED WITH EYES CLOSED, RR 16. CALL LIGHT IN REACH. IV INFUSING PER ORDER.
--- NOTE | 2023-10-18 05:31 | NUR ---
LAB IN ROOM. PATIENTS VITALS TAKEN AND RECORDED. NEW PUREWICK AND ATTEND IN PLACE. PATIENTS INTAKE AND OUTPUT RECORDED. PATIENT PLACED ON SPECIALTY MATTRESS. PATIENT TOLERATED ACTIVITY WELL. IV INFUSING PER ORDER. PATIENT PROVIDED SIPS OF WATER. PATIENT DENIES ANY FURTHER NEEDS. CALL LIGHT IN REACH. BED ALARM ON FOR SAFETY.
[2023-10-18 05:41] LABS: ANION GAP 17.1 (7-21); BUN/CREATININE RATIO 8.95 (6.0-28.6); CALCIUM 9.1 mg/dL (8.5-10.1); CREATININE, SERUM 0.67 mg/dL (0.55-1.02); POTASSIUM 4.1 mmol/L (3.5-5.1)
[2023-10-18 05:46] LABS: EOSINOPHILS 3.8 % (0-6); HEMATOCRIT 30.4 % (35.0-50.0); HEMOGLOBIN 10.1 g/dL (12.0-18.0); LYMPHOCYTES 36.2 % (24-44); MCH 26.5 (27-36); MCHC 33.1 g/dl (30-36); MONOCYTES 12.3 % (0-12); NEUTROPHILS 46.7 % (39-80); PLATELET COUNT 330 K/uL (140-440); RDW 16.7 (10.5-15.0)
--- NOTE | 2023-10-18 06:02 | NUR ---
PATIENT OFF FLOOR TO MRI
--- NOTE | 2023-10-18 06:29 | NUR ---
PATIENT BACK TO FLOOR FROM MRI. IV INFUSING PER ORDER. PUREWICK IN PLACE. PATIENT PROVIDED SIPS OF WATER. PATIENT DENIES ANY FURTHER NEEDS. CALL LIGHT IN REACH. BED ALARM ON FOR SAFETY.
--- NOTE | 2023-10-18 07:15 | NUR ---
REPORT RECEIVED FROM DECK SUPERVISOR RN TOMÁS. PATIENT IS LYING IN BED WITH EYES CLOSED AND RESPIRATIONS ARE EVEN AND UNLABORED. PATIENT CALL LIGHT AND PERSONAL BELONGINGS ARE WITHIN REACH.
--- NOTE | 2023-10-18 09:12 | NUR ---
0800 AND 0900 MEDICATIONS ADMINISTERED PER THE EMAR BY FEROZ SCHAFFER. PATIENT FULL ASSESSMENT COMPLETE AND DOCUMENTED IN THE CHART. PATIENT LUNG SOUNDS ARE CLEAR BILATERALLY IN ALL LUNG KINSEY. PATIENT ON ROOM AIR. PATIENT WITH NORMAL S1 AND S2 ON CARDIAC AUSCULTATION. RADIAL AND PEDAL PULSES ARE STRONG BILATERALLY. PATIENT CAPILLARY REFILL IS LESS THAN 3 SECONDS IN THE UPPER AND LOWER EXTREMITIES BILATERALLY. PATIENT BOWEL TONES ARE ACTIVE IN ALL FOUR QUADRANTS. PATIENT WAITING TO EAT BREAKFAST UNTIL THE PATIENTS ARRIVES. PATIENT WITH NUMBNESS IN THE LEFT LOWER EXTREMITY. PATIENT WITH GROSS MOVEMENT IN THE RIGHT UPPER EXTREMITY AND NO MOVEMENT IN THE RIGHT LOWER EXTREMITY. PATIENT WITH NO COMPLAINTS OF PAIN AT THIS TIME. PATIENT IS ALERT AND ORIENTED TO SELF AND PLACE AT THIS TIME. PATIENT GETTING AN ECHO AT THIS TIME. ROCEPHIN ANTIBIOTIC IS DONE INFUSING. PATIENT STATED NO FURTHER NEEDS AT THIS TIME. CALL LIGHT AND PERSONAL BELONGINGS ARE WITHIN REACH.
--- NOTE | 2023-10-18 09:14 | NUR ---
ASSESSMENT COMPLETE. ECHO IN PROGRESS.
--- NOTE | 2023-10-18 09:54 | NUR ---
ECHO COMPLETE. PT SITTING UP IN BED, REPOSITIONED. IV MAINTENANCE FLUIDS RESUMED.
--- NOTE | 2023-10-18 10:30 | NUR ---
PATIENT IS LYING IN BED WITH THE HOB ELEVATED. PATIENT WITH EYES CLOSED AND RESPIRATIONS ARE EVEN AND UNLABORED. PATIENT WITH CALL LIGHT AND PERSONAL BELONGINGS ARE WITHIN REACH.
--- NOTE | 2023-10-18 10:55 | NUR ---
SPOKE WITH PATIENT. CONTINUES WITH EXPRESSIVE APHASIA. WILL SPEAK WITH SPOUSE WHEN HE IS VISITING TO VERIFY INFORMATION. PATIENT STATES SHE LIVES WITH SPOUSE, RAMIN. RAMP TO GET INTO HOME. SHE IS WHEELCHAIR BOUND BUT HAS A WALKER AND IS ABLE TO PIVOT AT BASELINE. ALSO HAS A SHOWER CHAIR. STATES RAMIN DRIVES HER. DOES NOT BELIEVE THEY ARE HAVING FINANCIAL DIFFICULTIES. WHEN ASKED IF HER AND RAMIN HAVE ANY HELP, STATES "THEY WANT TO, BUT WE DON'T WANT HELP." WHILE TALKING, SHE REPEATS THE LAST SENTENCES THIS NURSE SAYS INTERMITTENTLY. INFORMED HER, THIS NURSE WILL VERIFY WITH SPOUSE WHAT NEEDS ARE WHEN HE IS IN THE FACILITY. VERBALIZES UNDERSTANDING.
--- NOTE | 2023-10-18 11:10 | NUR ---
PT REFUSED BREAKFAST. CLEAR ROY ENSURE OFFERED. PT STATES SHE LIKES IT. PT REPOSITIONED IN BED WITH CALL LIGHT WITHIN REACH.
--- NOTE | 2023-10-18 11:21 | NUR ---
UR NOTE MCG URINARY TRACT INFECTION (ISC) 10/16/23 MET CLINICAL INDICATIONS FOR ADMISSION TO INPATIENT CARE
--- NOTE | 2023-10-18 11:25 | NUR ---
PATIENT TOOK TWO DRINKS OF ENSURE AND DID NOT WANT ANYMORE. PATIENT STATED NO FURTHER NEEDS AT THIS TIME. CALL LIGHT AND PERSONAL BELONGINGS ARE WITHIN REACH.
--- NOTE | 2023-10-18 11:47 | NUR ---
PATIENT MET WITH THE DOCTOR WITH RN AT THE BEDSIDE. PATIENT WONDERING WHEN THEY WILL BE GOING HOME. PATIENT UPDATED ON MRI RESULTS WELL THE PLAN OF CARE MOVING FORWARD. MD NOTIFIED OF ST WORKING WITH HER AND THAT THE HAS BEEN REQUESTING TO SPEAK WITH THE DOCTOR. PATIENT STATED NO FURTHER NEEDS AT THIS TIME. CALL LIGHT AND PERSONAL BELONGINGS ARE WITHIN REACH.
--- NOTE | 2023-10-18 12:23 | NUR ---
INSULIN GIVEN ORDERED. ASSISTING PT IN EATING LUNCH. PT STATES SHE LIKES THE MEATLOAF.
--- NOTE | 2023-10-18 13:11 | NUR ---
PATIENT IS LYING IN BED WITH THE HOB OF ELEVATED. PATIENT WITH EYES CLOSED AND RESPIRATIONS ARE EVEN AND UNLABORED. PATIENT WITH CALL LIGHT AND PERSONAL BELONGINGS ARE WITHIN REACH.
--- NOTE | 2023-10-18 13:43 | NUR ---
IN TO VISIT PT. DR DALAL NOTIFIED THAT WOULD LIKE TO VISIT WITH HIM.
--- NOTE | 2023-10-18 13:45 | NUR ---
PT LAYING IN BED. PT IN ROOM. PT HAS NO NEEDS AT THIS TIME.
--- NOTE | 2023-10-18 13:55 | NUR ---
DR DALAL IN TO VISIT WITH PATIENT AND .
--- NOTE | 2023-10-18 14:22 | NUR ---
SPOKE WITH RAMIN, SPOUSE. STATES HE IS CARING FOR PATIENT ALONE. NO ASSISTANCE. DOES STATE THEY HAVE INTERMEDIATE MEDICAID. INFORMED OF OPTIONS FOR CAREGIVERS. INFORMATION FOR FAMILY RESOURCES PROVIDED TO RAMIN. STATES HE WILL TAKE PATIENT TO OUTPATIENT THERAPY TO GET HER OUT OF THE HOUSE. DOES THINK HE WILL EVENTUALLY NEED MORE HELP BUT STILL FEELS HE CAN CARE FOR HER.
--- NOTE | 2023-10-18 14:22 | NUR ---
MED REC COMPLETE
[2023-10-18] MEDS ORDERED: CEFDINIR300 MG PO (14:41)
--- NOTE | 2023-10-18 15:05 | NUR ---
PATIENT FACESHEET AND THERAPY ORDERS FAXED TO K[facility]OL[facility] AT [facility].
--- NOTE | 2023-10-18 16:13 | NUR ---
DISCHARGE INSTRUCTIONS (VERBAL AND WRITTEN) GIVEN TO PT AND , BOTH STATE UNDERSTANDING. NO FURTHER QUESTIONS AT THIS TIME.
--- NOTE | 2023-10-18 16:31 | NUR ---
DISCHARGE INSTRUCTIONS AND EDUCATION ON A UTI REVIEWED WITH THE PATIENT AND THEIR . VITAL SIGNS TAKEN AND DOCUMENTED WITHIN AN HOUR OF DISCHARGE. PATIENT AND FAMILY STATED NO QUESTIONS. DISCHARGE PAPER SIGNED. PATIENT TAKEN TO HUSBANDS CAR WITH ANAYA CHUN VIA WHEELCHAIR. WAFFLE MATRESS OVERLAY GIVEN TO PATIENT TO TAKE HOME.
== END 2023-10-18 16:25 | disposition home or self-care (01) | DRG 92 ==
LOC: ED 19:35 → MS 22:13
PROVIDERS: Internal Medicine; ADMIT Internal Medicine; ATTEND Internal Medicine
DX: R47.01 Aphasia (principal); I69.351 Hemiplegia and hemiparesis following cerebral infarction affecting right dominant side; N17.9 Acute kidney failure, unspecified; N39.0 Urinary tract infection, site not specified; Z66 Do not resuscitate; E03.9 Hypothyroidism, unspecified; G25.81 Restless legs syndrome; E11.65 Type 2 diabetes mellitus with hyperglycemia; Z90.710 Acquired absence of both cervix and uterus; Z79.82 Long term (current) use of aspirin; Z79.899 Other long term (current) 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; Z79.84 Long term (current) use of oral hypoglycemic drugs; Z79.01 Long term (current) use of anticoagulants
CPT/HCPCS: 36415; 70450; 70496; 70498; 70551; 71045; 80048; 80053; 81001; 84443; 85025; 85610; 85730; 92523; 93005; 93010; 93306; 97162; 97165; A9270; J0696; J1815; J7030; J7121; Q9967

== ENCOUNTER 2024-01-13 17:59 | Inpatient (IN) | payer MEDICARE, OTHER ==
[~2024-01-13] VITALS: Ht 154.9 cm; Wt 54.7 kg
[~2024-01-13 17:59] MED LIST changes: +CEFDINIR300 MG PO; +LEVOTHYROXINE88 MCG PO
[2024-01-13] MEDS ORDERED: SODIUM CHLORIDE 0.9% 1,000 ML IV ONE (18:30)
[2024-01-13 18:49] LABS: BILIRUBIN, URINE NEGATIVE (negative); BLOOD/HGB, URINE LARGE (Negative); KETONE, URINE SMALL (Negative); LEUK ESTERASE, URINE TRACE (negative); NITRITE, URINE POSITIVE (negative); PH, URINE 5.5 (5-7)
[2024-01-13 19:06] LABS: EPITHELIAL CELLS, URINE NONE SEEN /lpf (0-1+)
[2024-01-13 19:06] LABS: HEMOGLOBIN 8.3 g/dL (12.0-18.0); MCH 23.8 (27-36); MCV 74.3 fl (81-99); PLATELET COUNT 361 K/uL (140-440); RDW 17.6 (10.5-15.0)
[2024-01-13 19:07] LABS: BACTERIA, URINE 1+ /hpf (negative); CASTS, URINE NONE SEEN \\lpf; COLLECTION TYPE, URINE CLEAN CATCH; CRYSTALS, URINE NONE SEEN (0-1+); REFLEX CULTURE, URINE Yes (No)
[2024-01-13 19:16] LABS: ALBUMIN 2.9 g/dL (3.4-5.0); ALBUMIN/GLOBULIN RATIO 0.94 (1.1-2.4); ANION GAP 13.1 (7-21); BILIRUBIN, TOTAL 0.5 ng/dL (0.2-1.0); BUN/CREATININE RATIO 14.47 (6.0-28.6); CALCIUM 8.7 mg/dL (8.5-10.1); CREATININE, SERUM 0.76 mg/dL (0.55-1.02); POTASSIUM 3.1 mmol/L (3.5-5.1); TSH, 3RD GENERATION 11.207 uIU/mL (0.358-3.740)
--- NOTE | 2024-01-13 19:26 | EKG ---
[facility] [address] [facility] [place] [address] Signed Normal sinus rhythm Nonspecific T wave abnormality Abnormal ECG When compared with ECG of 25-DEC-2023 15:01, Nonspecific T wave abnormality has replaced inverted T waves in Anterolateral leads Confirmed by Archana Pena ([id number]) on 01/13/2024 7:26:00 PM Electronically Signed By: ARCHANA PENA MD 01/13/24 1926 PATIENT NAME: LOGAN LOPEZ Electrocardiogram DATE OF : 47 PHYSICIAN: ARCHANA PENA MD REPORT #: [id number] REPORT IS CONFIDENTIAL AND NOT TO BE RELEASED WITHOUT AUTHORIZATION
[2024-01-13 19:35] LABS: BASOPHILS, MANUAL DIFF 5; EOSINOPHILS, MANUAL DIFF 14; LYMPHOCYTES, MANUAL DIFF 67; MONOCYTES, MANUAL DIFF 3; NEUTROPHILS, MANUAL DIFF 11
[2024-01-13] MEDS ORDERED: POTASSIUM CHLORIDE 10 MEQ TABCR PO ONE (20:00)
[2024-01-13] MEDS ORDERED: CEFTRIAXONE/SODIUM CHLORIDE 2 GM/100 ML PIGGYBACK IV ONE (20:00)
[2024-01-14] VITALS (9 sets, daily range): BP systolic 103–168; BP diastolic 53–82
[2024-01-14 05:43] LABS: HEMATOCRIT 27.8 % (35.0-50.0); HEMOGLOBIN 8.9 g/dL (12.0-18.0); MCH 23.6 (27-36); MCHC 31.9 g/dl (30-36); PLATELET COUNT 342 K/uL (140-440); RBC 3.76 M/ul (4.3-5.7); RDW 17.1 (10.5-15.0)
[2024-01-14 06:02] LABS: ALBUMIN 2.7 g/dL (3.4-5.0); ALBUMIN/GLOBULIN RATIO 0.9 (1.1-2.4); ANION GAP 18.4 (7-21); BANDS, MANUAL DIFF 2; BILIRUBIN, TOTAL 0.5 ng/dL (0.2-1.0); BUN/CREATININE RATIO 9.37 (6.0-28.6); CALCIUM 8.3 mg/dL (8.5-10.1); CREATININE, SERUM 0.64 mg/dL (0.55-1.02); EOSINOPHILS, MANUAL DIFF 30; LYMPHOCYTES, MANUAL DIFF 46; MONOCYTES, MANUAL DIFF 3; NEUTROPHILS, MANUAL DIFF 19; POTASSIUM 3.4 mmol/L (3.5-5.1); PROTEIN, TOTAL 5.7 g/dL (6.4-8.2)
[2024-01-14] MEDS ORDERED: ondansetron HCL 4 MG/2 ML VIAL IV PRN (07:30)
[2024-01-14] MEDS ORDERED: MAGNESIUM HYDROXIDE 30 ML UDC PO PRN (07:30)
[2024-01-14] MEDS ORDERED: ACETAMINOPHEN 500 MG TAB PO PRN (07:30)
[2024-01-14] MEDS ORDERED: POTASSIUM CHLORIDE 20 MEQ/15 ML CUP PO ONE (07:45)
[2024-01-14] MEDS ORDERED: MAGNESIUM SULFATE 2 GM/50 ML BAG IV ONE (07:45)
[2024-01-14] MEDS ORDERED: CEFTRIAXONE/SODIUM CHLORIDE 1 GM/100 ML PIGGYBACK IV SCH (09:00)
[2024-01-14] MEDS ORDERED: ENOXAPARIN SODIUM 40 MG/0.4 ML SYR SUB-Q SCH (09:00)
[2024-01-14] MEDS ORDERED: SODIUM CHLORIDE 0.9% 1,000 ML IV SCH (09:15)
[2024-01-14] MEDS ORDERED: METHENAMINE HIPP1 GM PO (09:25)
[2024-01-14] MEDS ORDERED: GLUCAGON,HUMAN RECOMBINANT 1 MG/ML VIAL SUB-Q PRN (10:15)
[2024-01-14] MEDS ORDERED: IBLOOD GLUCOSE TEST STRIP 1 EA TEST XX PRN (10:15)
[2024-01-14] MEDS ORDERED: DEXTROSE 50% 50 ML SYR IV PRN ×2 (10:15)
[2024-01-14] MEDS ORDERED: DEXTROSE 5% 1,000 ML IV PRN (10:15)
[2024-01-14] MEDS ORDERED: PHARMACY RENAL DOSE ADJUSTMENT 1 DOSE MISC PO SCH ×2 (12:00)
[2024-01-14] MEDS ORDERED: LEVOTHYROXINE SODIUM 88 MCG TAB PO SCH (13:56)
[2024-01-14] MEDS ORDERED: APIXABAN 2.5 MG TAB PO SCH (13:56)
[2024-01-14] MEDS ORDERED: ATORVASTATIN 40 MG TAB PO SCH (13:57)
[2024-01-14] MEDS ORDERED: FLUDROCORTISONE ACETATE 0.1 MG TAB PO SCH (13:58)
[2024-01-14] MEDS ORDERED: lisinopriL 10 MG TAB PO SCH (13:59)
[2024-01-14] MEDS ORDERED: PANTOPRAZOLE SODIUM 40 MG TABEC PO SCH (13:59)
[2024-01-14] MEDS ORDERED: IBLOOD GLUCOSE TEST STRIP 1 EA TEST VI SCH ×2 (14:00→17:00)
[2024-01-14] MEDS ORDERED: Insulin Regular, Human 100 UNIT/ML ML SUB-Q SCH ×2 (14:00→17:00)
[2024-01-14] MEDS ORDERED: TRIMETHOPRIM/SULFAMETHOXAZOLE 1 EA TAB PO SCH (14:15)
[2024-01-14] MEDS ORDERED: HYDROCORTISONE 10 MG TAB PO SCH (15:00)
[2024-01-14] MEDS ORDERED: lisinopriL 10 MG TAB PO PRN (15:15)
--- NOTE | 2024-01-14 15:37 | EKG ---
[facility] [address] [facility] [place] [address] Signed Normal sinus rhythm Nonspecific T wave abnormality Abnormal ECG When compared with ECG of 13-JAN-2024 18:58, QT has shortened Confirmed by Archana Pena ([id number]) on 01/14/2024 3:37:14 PM Electronically Signed By: ARCHANA PENA MD 01/14/24 1537 PATIENT NAME: LOGAN LOPEZ Electrocardiogram DATE OF : 47 PHYSICIAN: ARCHANA PENA MD REPORT #: [id number] REPORT IS CONFIDENTIAL AND NOT TO BE RELEASED WITHOUT AUTHORIZATION
[2024-01-14] MEDS ORDERED: GABAPENTIN 100 MG CAP PO SCH (21:00)
[2024-01-14] MEDS ORDERED: PRAMIPEXOLE DIHYDROCHLORIDE 0.25 MG TAB PO SCH (21:00)
[2024-01-14] MEDS ORDERED: MELATONIN 3 MG TAB PO PRN ×2 (21:00)
[2024-01-15] VITALS (8 sets, daily range): BP systolic 114–161; BP diastolic 60–95
[2024-01-15 05:54] LABS: EOSINOPHILS 7.8 % (0-6); HEMATOCRIT 25.8 % (35.0-50.0); HEMOGLOBIN 8.4 g/dL (12.0-18.0); LYMPHOCYTES 34.5 % (24-44); MCH 23.6 (27-36); MCHC 32.5 g/dl (30-36); MCV 72.6 fl (81-99); MONOCYTES 10.9 % (0-12); NEUTROPHILS 44.8 % (39-80); PLATELET COUNT 360 K/uL (140-440); RBC 3.55 M/ul (4.3-5.7); RDW 17.6 (10.5-15.0)
[2024-01-15 06:10] LABS: ANION GAP 14.8 (7-21); BUN/CREATININE RATIO 5.79 (6.0-28.6); CALCIUM 8.2 mg/dL (8.5-10.1); CREATININE, SERUM 0.69 mg/dL (0.55-1.02); MAGNESIUM 1.2 mg/dL (1.8-2.4); POTASSIUM 3.8 mmol/L (3.5-5.1)
[2024-01-15] MEDS ORDERED: VANCOMYCIN PER PHARMACY PROTOCOL IV SCH (10:12)
[2024-01-15] MEDS ORDERED: MAGNESIUM SULFATE 2 GM/50 ML BAG IV ONE (10:15)
[2024-01-15] MEDS ORDERED: DAPTOmycin 500 MG/10 ML VIAL IV SCH (10:57)
[2024-01-16] VITALS (8 sets, daily range): BP systolic 107–150; BP diastolic 54–67
[2024-01-16 05:36] LABS: BASOPHILS 1.4 % (0-2); EOSINOPHILS 4.9 % (0-6); HEMATOCRIT 23.8 % (35.0-50.0); HEMOGLOBIN 7.6 g/dL (12.0-18.0); LYMPHOCYTES 36.5 % (24-44); MCH 23.3 (27-36); MCV 72.9 fl (81-99); MONOCYTES 13.3 % (0-12); NEUTROPHILS 43.9 % (39-80); PLATELET COUNT 252 K/uL (140-440); RBC 3.27 M/ul (4.3-5.7); RDW 17.6 (10.5-15.0)
[2024-01-16 05:51] LABS: ANION GAP 11.6 (7-21); BUN/CREATININE RATIO 9.52 (6.0-28.6); CALCIUM 8.3 mg/dL (8.5-10.1); CREATININE, SERUM 0.63 mg/dL (0.55-1.02); MAGNESIUM 1.4 mg/dL (1.8-2.4); POTASSIUM 3.6 mmol/L (3.5-5.1)
[2024-01-16] MEDS ORDERED: MAGNESIUM SULFATE 4 GM/100 ML BAG IV ONE (08:00)
[2024-01-16] MEDS ORDERED: POLYETHYLENE GLYCOL 3350 1 PACKET PO SCH (09:00)
[2024-01-16] MEDS ORDERED: SENNOSIDES/DOCUSATE 1 EA TAB PO SCH (09:00)
[2024-01-17] VITALS (8 sets, daily range): BP systolic 103–138; BP diastolic 53–66
[2024-01-17 05:26] LABS: BASOPHILS 1.6 % (0-2); EOSINOPHILS 6.7 % (0-6); HEMATOCRIT 22.5 % (35.0-50.0); HEMOGLOBIN 7.4 g/dL (12.0-18.0); LYMPHOCYTES 42.7 % (24-44); MCH 23.9 (27-36); MCHC 32.8 g/dl (30-36); PLATELET COUNT 380 K/uL (140-440); RBC 3.08 M/ul (4.3-5.7); RDW 17.6 (10.5-15.0)
[2024-01-17 05:32] LABS: ANION GAP 11.2 (7-21); BUN/CREATININE RATIO 7.35 (6.0-28.6); CALCIUM 8.8 mg/dL (8.5-10.1); CREATININE, SERUM 0.68 mg/dL (0.55-1.02); MAGNESIUM 1.8 mg/dL (1.8-2.4); POTASSIUM 3.2 mmol/L (3.5-5.1)
[2024-01-17] MEDS ORDERED: POTASSIUM CHLORIDE 40 MEQ,LIDOCAINE HCL 1% 40 MG in DEXTROSE 5% 500 ML IV ONE (08:30)
--- NOTE | 2024-01-17 22:40 | EKG ---
[facility] [address] [facility] [place] [address] Signed Normal sinus rhythm Nonspecific T wave abnormality Prolonged QT Abnormal ECG When compared with ECG of 14-JAN-2024 00:12, T wave inversion more evident in Lateral leads Confirmed by Letty Malcolm MD () on 01/17/2024 10:40:31 PM Electronically Signed By: LETTY MALCOLM MD 01/17/24 2240 PATIENT NAME: LOGAN LOPEZ Electrocardiogram DATE OF : 47 PHYSICIAN: LETTY MALCOLM MD REPORT #: [id number] REPORT IS CONFIDENTIAL AND NOT TO BE RELEASED WITHOUT AUTHORIZATION
[2024-01-18 00:22] VITALS: BP 125/66
[2024-01-18 01:30] VITALS: BP 125/60
[2024-01-18 05:30] LABS: EOSINOPHILS 6.3 % (0-6); HEMATOCRIT 22.3 % (35.0-50.0); HEMOGLOBIN 7.2 g/dL (12.0-18.0); LYMPHOCYTES 42.7 % (24-44); MCH 23.7 (27-36); MCHC 32.5 g/dl (30-36); MCV 72.9 fl (81-99); MONOCYTES 8.1 % (0-12); NEUTROPHILS 41.9 % (39-80); PLATELET COUNT 394 K/uL (140-440); RBC 3.06 M/ul (4.3-5.7); RDW 17.8 (10.5-15.0)
[2024-01-18 05:34] VITALS: BP 135/53
[2024-01-18 05:41] LABS: ANION GAP 11.2 (7-21); BUN/CREATININE RATIO 6.75 (6.0-28.6); CREATININE, SERUM 0.74 mg/dL (0.55-1.02); MAGNESIUM 1.4 mg/dL (1.8-2.4); POTASSIUM 3.2 mmol/L (3.5-5.1)
[2024-01-18] MEDS ORDERED: POTASSIUM CHLORIDE 40 MEQ,LIDOCAINE HCL 1% 40 MG in DEXTROSE 5% 500 ML IV ONE (08:30)
[2024-01-18] MEDS ORDERED: MAGNESIUM SULFATE 4 GM/100 ML BAG IV ONE (08:30)
[2024-01-18] MEDS ORDERED: SODIUM FERRIC GLUCONAT IV ONE (10:00)
[2024-01-18] MEDS ORDERED: SODIUM CHLORIDE 0.9% IV ONE (10:00)
[2024-01-18] MEDS ORDERED: SUCROSE IV ONE (10:00)
[2024-01-18 10:02] VITALS: BP 107/53
[2024-01-18 13:34] VITALS: BP 101/71
[2024-01-18] MEDS ORDERED: SULFAMETHOXAZO1 EAC1 PO (14:08)
[2024-01-18] MEDS ORDERED: IRON325 M1 PO (14:10)
[2024-01-18 15:26] VITALS: BP 124/74
[2024-01-19 14:06] LABS: FERRITIN 19 ng/mL (11-328)
[2024-01-19 15:41] LABS: IRON BINDING CAPACITY TOTAL 232 ug/dL (240-450); IRON,SERUM OR PLASMA 17 ug/dL (28-170); TRANSFERRIN SATURATION 7 %sat (20-50)
== END 2024-01-18 15:45 | DRG 689 ==
LOC: ED 17:59 → MS 23:45
PROVIDERS: Emergency Medicine; Family Medicine; Internal Medicine; ADMIT Family Medicine; ATTEND Family Medicine
DX: N39.0 Urinary tract infection, site not specified (principal); G93.41 Metabolic encephalopathy; I24.89 Other forms of acute ischemic heart disease; E27.1 Primary adrenocortical insufficiency; I69.951 Hemiplegia and hemiparesis following unspecified cerebrovascular disease affecting right dominant side; D50.9 Iron deficiency anemia, unspecified; E11.9 Type 2 diabetes mellitus without complications; E03.9 Hypothyroidism, unspecified; E87.6 Hypokalemia; E83.42 Hypomagnesemia; G47.00 Insomnia, unspecified; Z90.710 Acquired absence of both cervix and uterus; Z79.82 Long term (current) use of aspirin; Z79.899 Other long term (current) 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; Z79.01 Long term (current) use of anticoagulants; Z79.890 Hormone replacement therapy
CPT/HCPCS: 36415; 51701; 70450; 70496; 70498; 70551; 80048; 80053; 81001; 82607; 82728; 82746; 83550; 83605; 83735; 84439; 84443; 84484; 85025; 87040; 87077; 87088; 87186; 92507; 92610; 93005; 93010; 93306; 97110; 97112; 97163; 97167; 97530; 97535; 99285-25; A9270; J0696; J0878; J1650; J1815; J2916; J3475; J3480; J3490; J7030; J7050; J7060; Q9967

== ENCOUNTER 2024-01-29 17:20 | Emergency (ER) | payer MEDICARE, OTHER ==
[~2024-01-29] VITALS: Ht 154.9 cm; Wt 59.0 kg
[~2024-01-29 17:20] MED LIST changes: +IRON325 M1 PO; +METHENAMINE HIPP1 GM PO; +SULFAMETHOXAZO1 EAC1 PO
[2024-01-29] MEDS ORDERED: DEXTROSE 50% 50 ML SYR ONE (18:56)
[2024-01-29 19:02] LABS: HEMOGLOBIN 8.8 g/dL (12.0-18.0); MCHC 31.3 g/dl (30-36); RBC 3.61 M/ul (4.3-5.7)
[2024-01-29 19:06] LABS: HEMATOCRIT 28.3 % (35.0-50.0); MCH 24.5 (27-36); MCV 78.2 fl (81-99); PLATELET COUNT 477 K/uL (140-440); RDW 22.8 (10.5-15.0)
[2024-01-29 19:13] LABS: INR 1.23 (0.80-1.30); PROTIME 15.1 Sec (11.2-14.2)
[2024-01-29 19:15] LABS: PARTIAL THROMBOPLASTIN TIME 37.2 Sec (22.9-41.3)
[2024-01-29] MEDS ORDERED: DEXTROSE 50% 50 ML SYR IV ONE (19:15)
[2024-01-29 19:21] LABS: ALBUMIN 2.8 g/dL (3.4-5.0); ALBUMIN/GLOBULIN RATIO 0.78 (1.1-2.4); ANION GAP 14.6 (7-21); BILIRUBIN, TOTAL 0.6 ng/dL (0.2-1.0); BUN/CREATININE RATIO 16.45 (6.0-28.6); CREATININE, SERUM 0.79 mg/dL (0.55-1.02); POTASSIUM 3.6 mmol/L (3.5-5.1); PROTEIN, TOTAL 6.4 g/dL (6.4-8.2)
[2024-01-29 19:23] LABS: EOSINOPHILS, MANUAL DIFF 6; MONOCYTES, MANUAL DIFF 4; NEUTROPHILS, MANUAL DIFF 59
[2024-01-29] MEDS ORDERED: NYSTATIN CREAM 30 GM TUBE TOP ONE (20:15)
[2024-01-29] MEDS ORDERED: NYSTATIN15 GM TOP (20:19)
[2024-01-29 21:01] VITALS: BP 133/66
--- NOTE | 2024-01-30 12:50 | EKG ---
[facility] [address] [place] [address] Signed Normal sinus rhythm Nonspecific T wave abnormality Abnormal ECG When compared with ECG of 14-JAN-2024 08:00, T wave inversion no longer evident in Lateral leads Confirmed by PRIETO GASPAR MD ([id number]) on 01/30/2024 12:50:36 PM Electronically Signed By: PRIETO GASPAR 01/30/24 1250 PATIENT NAME: ALVAROYASEMINLOGANMAREN RAYMUNDO Electrocardiogram DATE OF : 47 PHYSICIAN: PRIETO GASPAR REPORT #: [id number] REPORT IS CONFIDENTIAL AND NOT TO BE RELEASED WITHOUT AUTHORIZATION
[2024-02-01 08:48] LABS: LYMPHOCYTES, MANUAL DIFF 31
== END 2024-01-29 21:12 | disposition home or self-care (01) ==
LOC: ED 17:20
PROVIDERS: Emergency Medicine
DX: B37.2 Candidiasis of skin and nail (principal); E11.649 Type 2 diabetes mellitus with hypoglycemia without coma; E03.9 Hypothyroidism, unspecified; Z86.73 Personal history of transient ischemic attack (TIA), and cerebral infarction without residual deficits; Z79.82 Long term (current) use of aspirin; Z79.84 Long term (current) use of oral hypoglycemic drugs; Z79.899 Other long term (current) 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
CPT/HCPCS: 36415; 80053; 84484; 85025; 85610; 85730; 93005; 93010; 96374; 99283-25

== ENCOUNTER 2024-05-17 14:33 | Observation (INO) | payer MEDICARE, OTHER ==
[~2024-05-17] VITALS: Ht 154.9 cm; Wt 52.7 kg
[~2024-05-17 14:33] MED LIST changes: +NYSTATIN15 GM TOP
[2024-05-17] MEDS ORDERED: CEFTRIAXONE/SODIUM CHLORIDE 2 GM/100 ML PIGGYBACK IV ONE (14:45)
[2024-05-17] MEDS ORDERED: SODIUM CHLORIDE 0.9% 1,000 ML IV ONE (14:45)
[2024-05-17 15:23] LABS: BASOPHILS 0.8 % (0-2); EOSINOPHILS 3.8 % (0-6); HEMATOCRIT 32.2 % (35.0-50.0); HEMOGLOBIN 10.6 g/dL (12.0-18.0); LYMPHOCYTES 28.4 % (24-44); MCV 87.9 fl (81-99); MONOCYTES 7.8 % (0-12); NEUTROPHILS 59.2 % (39-80); PLATELET COUNT 239 K/uL (140-440); RBC 3.67 M/ul (4.3-5.7); RDW 17.4 (10.5-15.0)
[2024-05-17 15:27] LABS: BILIRUBIN, URINE NEGATIVE (negative); BLOOD/HGB, URINE SMALL (Negative); KETONE, URINE NEGATIVE (Negative); LEUK ESTERASE, URINE MODERATE (negative); NITRITE, URINE POSITIVE (negative)
[2024-05-17 15:34] LABS: BACTERIA, URINE 1+ /hpf (negative); CASTS, URINE NONE SEEN \\lpf; COLLECTION TYPE, URINE CLEAN CATCH; CRYSTALS, URINE NONE SEEN (0-1+); EPITHELIAL CELLS, URINE SQUAMOUS 4+ /lpf (0-1+); REFLEX CULTURE, URINE No (No)
[2024-05-17 15:38] LABS: ALBUMIN 2.6 g/dL (3.4-5.0); ALBUMIN/GLOBULIN RATIO 0.96 (1.1-2.4); ANION GAP 15.1 (7-21); BILIRUBIN, TOTAL 0.7 ng/dL (0.2-1.0); BUN/CREATININE RATIO 22.53 (6.0-28.6); CALCIUM 8.2 mg/dL (8.5-10.1); CREATININE, SERUM 0.71 mg/dL (0.55-1.02); POTASSIUM 3.1 mmol/L (3.5-5.1); PROTEIN, TOTAL 5.3 g/dL (6.4-8.2)
[2024-05-17 15:42] LABS: LACTIC ACID, BLOOD 2.1 mmol/L (0.4-2.0)
[2024-05-17] MEDS ORDERED: HYDROCORTISONE SOD SUCCINATE 100 MG/2 ML VIAL IV ONE (17:15)
[2024-05-17] MEDS ORDERED: ondansetron HCL 4 MG/2 ML VIAL IV PRN (18:00)
[2024-05-17] MEDS ORDERED: DEXTROSE 50% 50 ML SYR IV PRN ×2 (18:00)
[2024-05-17] MEDS ORDERED: IBLOOD GLUCOSE TEST STRIP 1 EA TEST XX PRN (18:00)
[2024-05-17] MEDS ORDERED: SODIUM CHLORIDE 0.9% 1,000 ML IV SCH (18:00)
[2024-05-17] MEDS ORDERED: DEXTROSE 5% 1,000 ML IV PRN (18:00)
[2024-05-17] MEDS ORDERED: ACETAMINOPHEN 325 MG TAB PO PRN (18:00)
[2024-05-17] MEDS ORDERED: GLUCAGON,HUMAN RECOMBINANT 1 MG/ML VIAL SUB-Q PRN (18:00)
[2024-05-17 18:40] VITALS: BP 129/61
[2024-05-17] MEDS ORDERED: POTASSIUM CHLORIDE 40 MEQ,LIDOCAINE HCL 1% 40 MG in DEXTROSE 5% 250 ML IV ONE (19:15)
[2024-05-17] MEDS ORDERED: MAGNESIUM SULFATE 2 GM/50 ML BAG IV SCH (19:15)
[2024-05-17] MEDS ORDERED: POTASSIUM CHLORIDE 10 MEQ/100 ML BAG IV SCH (19:30)
[2024-05-17 19:49] VITALS: BP 116/53
[2024-05-17 19:52] VITALS: BP 116/53
[2024-05-17] MEDS ORDERED: IBLOOD GLUCOSE TEST STRIP 1 EA TEST VI SCH (21:00)
[2024-05-17] MEDS ORDERED: INSULIN LISPRO 100 UNIT/ML ML SUB-Q SCH (21:00)
[2024-05-17] MEDS ORDERED: SODIUM CHLORIDE 0.9% 500 ML IV SCH (22:00)
[2024-05-18] VITALS (10 sets, daily range): BP systolic 113–147; BP diastolic 51–83
[2024-05-18 05:59] LABS: BASOPHILS 0.2 % (0-2); EOSINOPHILS 0.1 % (0-6); HEMATOCRIT 38.2 % (35.0-50.0); HEMOGLOBIN 12.4 g/dL (12.0-18.0); LYMPHOCYTES 19.8 % (24-44); MCH 28.3 (27-36); MCHC 32.6 g/dl (30-36); MONOCYTES 4.9 % (0-12); PLATELET COUNT 254 K/uL (140-440); RBC 4.39 M/ul (4.3-5.7); RDW 17.2 (10.5-15.0)
[2024-05-18 07:11] LABS: ALBUMIN 2.7 g/dL (3.4-5.0); ALBUMIN/GLOBULIN RATIO 0.84 (1.1-2.4); ANION GAP 17.8 (7-21); BILIRUBIN, TOTAL 0.7 ng/dL (0.2-1.0); BUN/CREATININE RATIO 16.41 (6.0-28.6); CALCIUM 8.7 mg/dL (8.5-10.1); CREATININE, SERUM 0.67 mg/dL (0.55-1.02); MAGNESIUM 1.7 mg/dL (1.8-2.4); PHOSPHORUS, INORGANIC 2.9 mg/dL (2.5-4.9); POTASSIUM 3.8 mmol/L (3.5-5.1); PROTEIN, TOTAL 5.9 g/dL (6.4-8.2)
[2024-05-18] MEDS ORDERED: LEVOTHYROXINE100 MCG PO (09:12)
[2024-05-18] MEDS ORDERED: METHENAMINE HIPP1 GM PO (09:13)
[2024-05-18] MEDS ORDERED: LISINOPRIL5 MG PO (09:14)
[2024-05-18] MEDS ORDERED: MAG-OXIDE400 MG PO (09:14)
[2024-05-18] MEDS ORDERED: MAGNESIUM SULFATE 2 GM/50 ML BAG IV ONE (09:15)
[2024-05-18] MEDS ORDERED: PHARMACY RENAL DOSE ADJUSTMENT 1 DOSE MISC PO SCH (12:00)
[2024-05-18] MEDS ORDERED: CEFTRIAXONE/SODIUM CHLORIDE 2 GM/100 ML PIGGYBACK IV SCH (16:00)
[2024-05-18] MEDS ORDERED: GABAPENTIN 100 MG CAP PO SCH (21:00)
[2024-05-18] MEDS ORDERED: MELATONIN 3 MG TAB PO SCH (21:00)
[2024-05-18] MEDS ORDERED: APIXABAN 2.5 MG TAB PO SCH (21:00)
[2024-05-18] MEDS ORDERED: HYDROCORTISONE 10 MG TAB PO SCH (21:00)
[2024-05-18] MEDS ORDERED: PRAMIPEXOLE DIHYDROCHLORIDE 0.25 MG TAB PO SCH (21:00)
[2024-05-18] MEDS ORDERED: MAGNESIUM SULFATE 2 GM/50 ML BAG IV SCH (22:15)
[2024-05-19 05:22] VITALS: BP 138/64
[2024-05-19 05:59] VITALS: BP 138/64
[2024-05-19 06:09] LABS: ALBUMIN 2.8 g/dL (3.4-5.0); ALBUMIN/GLOBULIN RATIO 0.9 (1.1-2.4); ANION GAP 14.1 (7-21); BILIRUBIN, TOTAL 0.5 ng/dL (0.2-1.0); BUN/CREATININE RATIO 9.52 (6.0-28.6); CALCIUM 8.8 mg/dL (8.5-10.1); CREATININE, SERUM 0.63 mg/dL (0.55-1.02); MAGNESIUM 2.4 mg/dL (1.8-2.4); POTASSIUM 3.1 mmol/L (3.5-5.1); PROTEIN, TOTAL 5.9 g/dL (6.4-8.2)
[2024-05-19 06:41] LABS: HEMATOCRIT 31.8 % (35.0-50.0); HEMOGLOBIN 10.6 g/dL (12.0-18.0); NEUTROPHILS 57.1 % (39-80); RDW 17.5 (10.5-15.0)
[2024-05-19 06:43] LABS: BASOPHILS 0.7 % (0-2); EOSINOPHILS 2.8 % (0-6); LYMPHOCYTES 32.8 % (24-44); MCH 28.6 (27-36); MCHC 33.3 g/dl (30-36); MCV 85.8 fl (81-99); MONOCYTES 6.6 % (0-12); PLATELET COUNT 271 K/uL (140-440)
[2024-05-19] MEDS ORDERED: POTASSIUM CHLORIDE 40 MEQ,LIDOCAINE HCL 1% 40 MG in DEXTROSE 5% 250 ML IV ONE (07:45)
[2024-05-19] MEDS ORDERED: POTASSIUM CHLORIDE 10 MEQ TABCR PO ONE (08:00)
[2024-05-19] MEDS ORDERED: ASPIRIN 325 MG TAB PO SCH (08:00)
[2024-05-19] MEDS ORDERED: CEFDINIR300 MG PO (08:12)
[2024-05-19] MEDS ORDERED: MAG-TAB SR84 MG PO (08:13)
[2024-05-19] MEDS ORDERED: CEFDINIR 300 MG CAP PO ONE (08:15)
[2024-05-19] MEDS ORDERED: lisinopriL 5 MG TAB PO SCH (09:00)
[2024-05-19] MEDS ORDERED: ESCITALOPRAM OXALATE 10 MG TAB PO SCH (09:00)
[2024-05-19] MEDS ORDERED: FLUDROCORTISONE ACETATE 0.1 MG TAB PO SCH (09:00)
[2024-05-19] MEDS ORDERED: PANTOPRAZOLE SODIUM 40 MG TABEC PO SCH (09:00)
[2024-05-19] MEDS ORDERED: LEVOTHYROXINE SODIUM 100 MCG TAB PO SCH (09:00)
[2024-05-19] MEDS ORDERED: ATORVASTATIN 40 MG TAB PO SCH (09:00)
[2024-05-19 09:55] VITALS: BP 159/78
[2024-06-09] MEDS ORDERED: ASPIRIN325 MG PO (18:11)
[2024-06-09] MEDS ORDERED: DULCOLAX10 MG PR (18:28)
[2024-06-09] MEDS ORDERED: FLEET ENEMA133 ML PR (18:28)
[2024-06-09] MEDS ORDERED: IMODIUM A-D2 M2 PO (18:29)
[2024-06-11] MEDS ORDERED: POTASSIUM CHLO20 ME1 PO (09:39)
== END 2024-05-19 11:43 ==
LOC: ED 14:33 → MS 14:34
PROVIDERS: Emergency Medicine; ADMIT Family Medicine; ATTEND Family Medicine
DX: N39.0 Urinary tract infection, site not specified (principal); I69.320 Aphasia following cerebral infarction; I69.359 Hemiplegia and hemiparesis following cerebral infarction affecting unspecified side; E87.20 Acidosis, unspecified; E87.6 Hypokalemia; E83.42 Hypomagnesemia; E11.9 Type 2 diabetes mellitus without complications; E03.9 Hypothyroidism, unspecified; E27.1 Primary adrenocortical insufficiency; Z79.82 Long term (current) use of aspirin; Z79.01 Long term (current) use of anticoagulants; Z79.84 Long term (current) use of oral hypoglycemic drugs; Z79.890 Hormone replacement therapy; Z79.899 Other long term (current) 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
CPT/HCPCS: 36415; 51701; 70450; 71045; 80053; 81001; 83605; 83735; 84100; 85025; 92523; 96366; 96367; 96368; 96372; 96376; 97162; 97166; 97530; 99285-25; A9270; G0378; J0696; J1720; J1815; J3475; J3480; J3490; J7030; J7060

== ENCOUNTER 2025-03-11 14:08 | Emergency (ER) | payer MEDICARE, OTHER ==
[~2025-03-11] VITALS: Ht 154.9 cm; Wt 56.3 kg
[~2025-03-11 14:08] MED LIST changes: +DULCOLAX10 MG PR; +FLEET ENEMA133 ML PR; +IMODIUM A-D2 M2 PO; +LEVOTHYROXINE100 MCG PO; +LISINOPRIL5 MG PO; +MAG-TAB SR84 MG PO
[2025-03-11 14:57] LABS: BASOPHILS 0.3 % (0.1-1.2); EOSINOPHILS 0.3 % (0.7-5.8); HEMATOCRIT 36.3 % (34.1-44.9); HEMOGLOBIN 11.4 g/dL (11.2-15.7); LYMPHOCYTES 27.2 % (19.3-51.7); MCH 27.1 PG (25.6-32.2); MCHC 31.4 g/dL (32.2-35.5); MCV 86.4 fL (79.4-94.8); MONOCYTES 2.9 % (4.7-12.5); NEUTROPHILS 68.9 % (34.0-71.1); PLATELET COUNT 359 K/uL (182-369)
[2025-03-11 15:11] LABS: INR 1.09 (0.80-1.30); PROTIME 13.7 Sec (11.2-14.2)
[2025-03-11 15:31] LABS: ALBUMIN 3.3 g/dL (3.4-5.0); ALBUMIN/GLOBULIN RATIO 1.03 (1.1-2.4); ALCOHOL, MEDICAL <3 ng/dL (<3); ALKALINE PHOSPHATASE 155 U/L (46-116); ALT (SGPT) 18 U/L (14-59); ANION GAP 14.7 (7-21); AST (SGOT) 10 U/L (15-37); BILIRUBIN, TOTAL 0.4 mg/dL (0.2-1.0); BUN/CREATININE RATIO 15.21 (6.0-28.6); CALCIUM 10.1 mg/dL (8.5-10.1); CARBON DIOXIDE 25 mmol/L (21-32); CHLORIDE 103 mmol/L (98-107); CREATININE, SERUM 0.92 mg/dL (0.55-1.02); GLOMERULAR FILTRATION RATE,EST 64 mL/min (>60); POTASSIUM 3.7 mmol/L (3.5-5.1); PROTEIN, TOTAL 6.5 g/dL (6.4-8.2); TSH, 3RD GENERATION 9.555 uIU/mL (0.358-3.740); UREA NITROGEN 14 mg/dL (7-18)
[2025-03-11 16:51] LABS: BILIRUBIN, URINE NEGATIVE (negative); BLOOD/HGB, URINE NEGATIVE (Negative); KETONE, URINE NEGATIVE (Negative); LEUK ESTERASE, URINE SMALL (negative); NITRITE, URINE POSITIVE (negative)
[2025-03-11 16:56] LABS: EPITHELIAL CELLS, URINE SQUAMOUS 1+ /lpf (0-1+); RED BLOOD CELLS, URINE 0-1 /hpf (0-5)
[2025-03-11 16:57] LABS: BACTERIA, URINE 3+ /hpf (negative); CASTS, URINE NONE SEEN \\lpf; COLLECTION TYPE, URINE CLEAN CATCH; CRYSTALS, URINE NONE SEEN (0-1+); REFLEX CULTURE, URINE Yes (No); WHITE BLOOD CELLS, URINE 21-40 /HPF (0-5)
[2025-03-11 17:05] LABS: AMPHETAMINES, URINE NEGATIVE (NEGATIVE); BARBITURATES, URINE NEGATIVE (NEGATIVE); BENZODIAZEPINE, URINE NEGATIVE (NEGATIVE); BUPRENORPHINE, URINE NEGATIVE (NEGATIVE); CANNABINOID, URINE POSITIVE (NEGATIVE); COCAINE, URINE NEGATIVE (NEGATIVE); ECSTASY, URINE NEGATIVE (NEGATIVE); FENTANYL, URINE NEGATIVE (NEGATIVE); METHADONE, URINE NEGATIVE (NEGATIVE); OPIATES, URINE NEGATIVE (NEGATIVE); OXYCODONE, URINE NEGATIVE (NEGATIVE); PHENCYCLIDINE, URINE NEGATIVE (NEGATIVE)
[2025-03-11] MEDS ORDERED: ondansetron HCL 4 MG/2 ML VIAL IV ONE (18:30)
[2025-03-11] MEDS ORDERED: CEFTRIAXONE SODIUM 1 GM in SODIUM CHLORIDE 0.9% 100 ML IV ONE (18:30)
[2025-03-11] MEDS ORDERED: LEVOFLOXACIN750 MG PO (18:31)
[2025-03-11 19:56] VITALS: BP 154/68
--- NOTE | 2025-03-11 22:53 | EKG ---
[facility] [address] [place] [address] Signed Accelerated Junctional rhythm Possible Inferior infarct , age undetermined T wave abnormality, consider anterior ischemia Abnormal ECG When compared with ECG of 10-JUN-2024 09:28, No significant change was found Confirmed by Letty Malcolm MD () on 03/11/2025 10:53:46 PM Electronically Signed By: LETTY MALCOLM MD 03/11/25 2253 PATIENT NAME: LOGAN LOPEZ Electrocardiogram DATE OF : 47 PHYSICIAN: LETTY MALCOLM MD REPORT #: [id number] REPORT IS CONFIDENTIAL AND NOT TO BE RELEASED WITHOUT AUTHORIZATION
== END 2025-03-11 19:50 | disposition home or self-care (01) ==
LOC: ED 14:08
PROVIDERS: Emergency Medicine
DX: N39.0 Urinary tract infection, site not specified (principal); R11.2 Nausea with vomiting, unspecified; R55 Syncope and collapse; E11.9 Type 2 diabetes mellitus without complications; Z79.82 Long term (current) use of aspirin; Z79.899 Other long term (current) 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; Z79.84 Long term (current) use of oral hypoglycemic drugs
CPT/HCPCS: 36415; 51701; 70450; 71045; 80053; 80307; 81001; 82140; 84439; 84443; 84484; 85025; 85610; 87088; 93005; 93010; 99285-25; G0480; J0696; J2405

== ENCOUNTER 2025-03-15 15:39 | Inpatient (IN) | payer MEDICARE, OTHER ==
[~2025-03-15] VITALS: Ht 154.9 cm; Wt 49.9 kg
[2025-03-15 17:10] LABS: BASOPHILS 0.3 % (0.1-1.2); EOSINOPHILS 6.4 % (0.7-5.8); HEMATOCRIT 30.8 % (34.1-44.9); HEMOGLOBIN 9.8 g/dL (11.2-15.7); LYMPHOCYTES 45.5 % (19.3-51.7); MCH 26.8 PG (25.6-32.2); MCHC 31.8 g/dL (32.2-35.5); MCV 84.4 fL (79.4-94.8); MONOCYTES 7.3 % (4.7-12.5); NEUTROPHILS 40.1 % (34.0-71.1); PLATELET COUNT 295 K/uL (182-369); RBC 3.65 M/uL (3.93-5.22)
[2025-03-15 17:25] LABS: ALBUMIN 2.8 g/dL (3.4-5.0); ALBUMIN/GLOBULIN RATIO 0.9 (1.1-2.4); BILIRUBIN, TOTAL 0.6 mg/dL (0.2-1.0); BUN/CREATININE RATIO 12.22 (6.0-28.6); CALCIUM 9.4 mg/dL (8.5-10.1); CREATININE, SERUM 0.9 mg/dL (0.55-1.02); PROTEIN, TOTAL 5.9 g/dL (6.4-8.2)
[2025-03-15] MEDS ORDERED: SODIUM CHLORIDE 0.9% 1,500 ML IV PRN (17:45)
[2025-03-15] MEDS ORDERED: CEFTRIAXONE SODIUM 2 GM in SODIUM CHLORIDE 0.9% 100 ML IV ONE (17:45)
[2025-03-15 17:48] LABS: INR 1.24 (0.80-1.30); PARTIAL THROMBOPLASTIN TIME 27.1 Sec (22.9-41.3); PROTIME 14.7 Sec (11.2-14.2)
[2025-03-15 17:52] LABS: BILIRUBIN, URINE NEGATIVE (negative); BLOOD/HGB, URINE NEGATIVE (Negative); KETONE, URINE TRACE (Negative); LEUK ESTERASE, URINE SMALL (negative); NITRITE, URINE POSITIVE (negative)
[2025-03-15 17:59] LABS: EPITHELIAL CELLS, URINE SQUAMOUS 4+ /lpf (0-1+); RED BLOOD CELLS, URINE 0-1 /hpf (0-5); WHITE BLOOD CELLS, URINE >50 /HPF (0-5)
[2025-03-15 18:00] LABS: BACTERIA, URINE RARE /hpf (negative); CASTS, URINE NONE SEEN \\lpf; COLLECTION TYPE, URINE CATH; CRYSTALS, URINE NONE SEEN (0-1+); REFLEX CULTURE, URINE No (No)
[2025-03-15] MEDS ORDERED: ondansetron HCL 4 MG/2 ML VIAL IV PRN (19:45)
[2025-03-15] MEDS ORDERED: ACETAMINOPHEN 325 MG TAB PO PRN (19:45)
[2025-03-15 21:27] VITALS: BP 138/59
[2025-03-15 21:30] VITALS: BP 138/59
--- NOTE | 2025-03-15 21:30 | NUR ---
pt ARRIVED TO THE FLOOR VIA STRETCHER. pt TRANSFERED TO THE BED VIA SLIDE SHEET WITH THE HELP OF IDENTIFICATION CLERK. ANAYA LOZANO AND THIS RN. VITAL SIGNS AND ASSESSMENT DONE. PURE WICK PLACED ON pt. pt HAS RED AREA ON HER COCCYX. PICS TAKEN AND PLACED IN THE CHART. WATER REFRFESHED. IV ASSESSED, WNL. pt DENIES ANY OTHER NEEDS AT THIS TIME. CALL LIGHT WITHIN REACH.
--- NOTE | 2025-03-15 23:52 | NUR ---
pt RESTING IN THE BED WITH EYES CLOSED. RR EVEN AND UNLABORED. TELE #3 ON. CALL LIGHT WITHIN REACH.
[2025-03-16] VITALS (10 sets, daily range): BP systolic 107–153; BP diastolic 57–76
--- NOTE | 2025-03-16 01:14 | NUR ---
pt RESTING IN THE WITH EYES CLOSED. RR EVEN AND UNLABORED. CALL LIGHT WITHIN REACH.
--- NOTE | 2025-03-16 03:26 | NUR ---
pt RESTING IN THE BED WITH EYES CLOSED. RR EVEN AND UNLABORED. CALL LIGHT WITHIN REACH.
[2025-03-16 05:30] LABS: BASOPHILS 0.2 % (0.1-1.2); EOSINOPHILS 7.7 % (0.7-5.8); HEMATOCRIT 28.5 % (34.1-44.9); HEMOGLOBIN 9.3 g/dL (11.2-15.7); LYMPHOCYTES 48.6 % (19.3-51.7); MCH 27.4 PG (25.6-32.2); MCHC 32.6 g/dL (32.2-35.5); MCV 83.8 fL (79.4-94.8); MONOCYTES 7.9 % (4.7-12.5); NEUTROPHILS 35.4 % (34.0-71.1); PLATELET COUNT 278 K/uL (182-369)
[2025-03-16 05:53] LABS: ALBUMIN 2.4 g/dL (3.4-5.0); ALBUMIN/GLOBULIN RATIO 0.89 (1.1-2.4); ANION GAP 12.7 (7-21); BILIRUBIN, TOTAL 0.4 mg/dL (0.2-1.0); BUN/CREATININE RATIO 10.76 (6.0-28.6); CALCIUM 8.4 mg/dL (8.5-10.1); CREATININE, SERUM 0.65 mg/dL (0.55-1.02); POTASSIUM 2.7 mmol/L (3.5-5.1); PROTEIN, TOTAL 5.1 g/dL (6.4-8.2)
--- NOTE | 2025-03-16 07:23 | NUR ---
Pt report received from FEROZ Reynolds. Pt is resting supine in bed, eyes closed, breathing is regular, even, and non-labored. Side rails up x4, call light in reach. White board updated.
[2025-03-16] MEDS ORDERED: POTASSIUM BICARBONATE/CIT AC 20 MEQ TABEF PO ONE (07:45)
[2025-03-16] MEDS ORDERED: POTASSIUM CHLORIDE 10 MEQ TABCR PO ONE (07:45)
--- NOTE | 2025-03-16 08:22 | NUR ---
PATIENT WASHED HER FACE. WHILE PATIENT WAS SLEEPING I BRUSHED HER DENTURES. PATIENT IS NOW A WAKE SET HER UP IN BED FOR HER BREAKFAST. ALSO BEFORE SHE PUT IN HER DENTURES SHE DID MOUTH WASH.
[2025-03-16] MEDS ORDERED: POTASSIUM CHLORIDE 40 MEQ,LIDOCAINE HCL 1% 40 MG in DEXTROSE 5% 250 ML IV ONE (09:00)
--- NOTE | 2025-03-16 09:20 | NUR ---
Renetta was pleasant and friendly. Appreciated the visit and prayers.
[2025-03-16] MEDS ORDERED: ELIQUIS2.5 MG PO (09:26)
[2025-03-16] MEDS ORDERED: LEVOTHYROXINE112 MCG PO (09:28)
--- NOTE | 2025-03-16 10:25 | NUR ---
Dr. Cedillo in with pt. Pt is sitting up in the chair, breakfast tray on bedside table. Pt states she is finished eating breakfast. Pt states she doesn't usually eat breakfast, or much breakfast, and eats better at lunch and dinner. Dr. Cedillo instructed this RN to leave the purewick in so we can better monitor for visible blood in the urine. Pt provided with 2 warm blankets. Breakfast tray removed from room (about 5% eaten), and call light placed within reach.
--- NOTE | 2025-03-16 10:43 | NUR ---
INTO SEE PATIENT. PERSONAL HEALTH INFORMATION REVIEWED.PATIENT LIVES WITH IN A HOUSE. NO STEPS INTO THE HOME. PATIENT USES A WHEELCHAIR AT BASELINE. NO CPAP OR OXYGEN. NO DIFFCULTY PAYING UTILITIES OR OBTAINING FOOD. SHE HAS A CAREGIVER 3X A WEEK. ASKED PATIENT IF SHE WOULD BE WILLING TO GO TO A SNF. PATIENT STATES "NO I DO NOT WANT TO GO TO ONE OF THOSE." PATIENT DENIES ANY CM NEEDS AT THIS TIME.
[2025-03-16] MEDS ORDERED: CEFTRIAXONE SODIUM 2 GM in SODIUM CHLORIDE 0.9% 100 ML IV SCH (11:41)
[2025-03-16] MEDS ORDERED: POLYETHYLENE GLYCOL 3350 1 PACKET PO PRN (11:45)
[2025-03-16] MEDS ORDERED: LACTATED RINGER'S 1,000 ML IV SCH (11:45)
[2025-03-16] MEDS ORDERED: DEXTROSE 50% 50 ML SYR IV PRN ×2 (11:45)
[2025-03-16] MEDS ORDERED: GLUCAGON,HUMAN RECOMBINANT 1 MG/ML VIAL SUB-Q PRN (11:45)
[2025-03-16] MEDS ORDERED: ACETAMINOPHEN 325 MG TAB PO PRN (11:45)
[2025-03-16] MEDS ORDERED: IBLOOD GLUCOSE TEST STRIP 1 EA TEST XX PRN (11:45)
[2025-03-16] MEDS ORDERED: ondansetron HCL 4 MG/2 ML VIAL IV PRN (11:45)
[2025-03-16] MEDS ORDERED: DEXTROSE 5% 1,000 ML IV PRN (11:45)
[2025-03-16] MEDS ORDERED: PHARMACY RENAL DOSE ADJUSTMENT 1 DOSE MISC PO SCH (12:00)
[2025-03-16] MEDS ORDERED: INSULIN LISPRO 100 UNIT/ML ML SUB-Q SCH (12:00)
[2025-03-16] MEDS ORDERED: IBLOOD GLUCOSE TEST STRIP 1 EA TEST VI SCH (12:00)
[2025-03-16] MEDS ORDERED: HYDROCORTISONE 10 MG TAB PO SCH ×2 (12:03→21:00)
[2025-03-16] MEDS ORDERED: PANTOPRAZOLE SODIUM 40 MG TABEC PO SCH (12:04)
[2025-03-16] MEDS ORDERED: ESCITALOPRAM OXALATE 10 MG TAB PO SCH (12:04)
[2025-03-16] MEDS ORDERED: FLUDROCORTISONE ACETATE 0.1 MG TAB PO SCH (12:15)
--- NOTE | 2025-03-16 12:45 | NUR ---
Pt up in chair, eating lunch. Family arrived to visit.
--- NOTE | 2025-03-16 13:12 | NUR ---
Received a phone call from pt's spouse, Carlos Galdamez, checking up on pt. He was able to tell us that the pt had light pink blood in her underwear (she was wearing a panty liner) that filled up (over several hours) half of the panty liner. He advised that he took photos of it and showed the ER MD. Updated pt's spouse and advised him that we would contact him when she is ready to discharge. His phone number is [phone]
--- NOTE | 2025-03-16 13:19 | NUR ---
UR CLINICAL REVIEW: 2 MN MJ, MEETS INPT FOR UTI AND HYPOKALEMIA POTASSIUM REPLACEMENT, IV ANTIBIOTICS, TRENDING LABS, IV FLUIDS MEDICARE INPT 03/15/2025 @ 1945 ORDER MATCHES REG NO AUTH REQUIRED PER MEDICARE RULES DC PLAN PENDING FURTHER EVAL AND TREATMENT SNF VS. HOME.
--- NOTE | 2025-03-16 15:30 | NUR ---
MED REC COMPLETE
--- NOTE | 2025-03-16 16:00 | NUR ---
In with pt and aidbobbi Elizondo for hourly rounding. Pt sitting up in chair, states "I think I wet myself". Upon further assessment, noted that pt had a very large liquid/soft BM. 2P hands on assist pt to stand and transfer to wheelchair (chux placed on wheelchair). Pt wheeled into the bathroom where Caro assisted pt to stand with max assist on the right side, while I assessed and cleaned her back side, allyvn intact at coccyx. Rosa M care performed. Showered pt, pt declined shampoo. Pt tolerated activity well. Noted rosa m area still reddened. Pt dried off well and transferred from shower chair to wheel chair, then to bed (at pt's request). New purewick applied and brief's donned after barrier cream applied to rosa m area/groin. IV fluids restarted per emar. Side rails up x4, call light in reach.
[2025-03-16] MEDS ORDERED: ATORVASTATIN 40 MG TAB PO SCH (17:00)
--- NOTE | 2025-03-16 19:15 | NUR ---
REPORT RECEIVED FROM MICHELLE REDMAN. BOARD UPDATED. pt RESTING IN THE BED. pt DENIES ANY NEEDS AT THIS TIME. CALL LIGHT WITHIN REACH.
[2025-03-16] MEDS ORDERED: GABAPENTIN 100 MG CAP PO SCH (21:00)
[2025-03-16] MEDS ORDERED: PRAMIPEXOLE DIHYDROCHLORIDE 0.25 MG TAB PO SCH (21:00)
[2025-03-16] MEDS ORDERED: MELATONIN 3 MG TAB PO PRN (21:00)
--- NOTE | 2025-03-16 21:25 | NUR ---
ASSESSMENT AND VITAL SIGNS DONE. BG CHECKED WITH A RESULTS OF 262. SS INSULIN ADMINISTERED. SCHEDULED MEDS ADMINISTERED. IV ASSESSED, WNL. PURE WICK CANISTER EMPTIED. pt DENIES ANY OTHER NEEDS AT THIS TIME. CALL LIGHT WITHIN REACH.
--- NOTE | 2025-03-16 23:15 | NUR ---
pt RESTING IN THE BED WITH EYES CLOSED. RR EVEN AND UNLABORED. CALL LIGHT WITHIN REACH.
[2025-03-17] VITALS (10 sets, daily range): BP systolic 113–146; BP diastolic 49–58
--- NOTE | 2025-03-17 00:15 | NUR ---
IV ALARMING. NEW BAG OF IVF INFUSING PER ORDER. pt DENIES ANY OTHER NEEDS AT THIS TIME. CALL LIGHT WITHIN REACH.
--- NOTE | 2025-03-17 02:39 | NUR ---
pt RESTING IN THE BED WITH EYES CLOSED. RR EVEN AND UNLABORED. CALL LIGHT WITHIN REACH.
--- NOTE | 2025-03-17 04:33 | NUR ---
pt RESTING IN THE BED WITH EYES CLOSED. RR EVEN AND UNLABORED. CALL LIGHT WITHIN REACH.
[2025-03-17 05:35] LABS: BASOPHILS 0.4 % (0.1-1.2); EOSINOPHILS 2.7 % (0.7-5.8); HEMATOCRIT 29.1 % (34.1-44.9); HEMOGLOBIN 9.3 g/dL (11.2-15.7); LYMPHOCYTES 28.9 % (19.3-51.7); MCV 84.3 fL (79.4-94.8); MONOCYTES 6.7 % (4.7-12.5); PLATELET COUNT 267 K/uL (182-369); RBC 3.45 M/uL (3.93-5.22)
[2025-03-17 06:00] LABS: ALBUMIN 2.4 g/dL (3.4-5.0); ALBUMIN/GLOBULIN RATIO 0.92 (1.1-2.4); ANION GAP 12.8 (7-21); BILIRUBIN, TOTAL 0.4 mg/dL (0.2-1.0); BUN/CREATININE RATIO 10.93 (6.0-28.6); CALCIUM 8.8 mg/dL (8.5-10.1); CREATININE, SERUM 0.64 mg/dL (0.55-1.02); MAGNESIUM 1.3 mg/dL (1.8-2.4); POTASSIUM 3.8 mmol/L (3.5-5.1)
--- NOTE | 2025-03-17 06:18 | NUR ---
pt RESTED THROUGH OUT THE NIGHT. IVF INFUSING PER ORDER. PURE WICK IN PLACE AND DRAINING INTO CANISTER. SCHEDULED MEDS ADMINISTERED.
--- NOTE | 2025-03-17 06:21 | NUR ---
NEW PURE WICK PLACED, BRIEF CHANGED. VITAL SIGNS DONE. SCHEDULED MEDS ADMINISTERED. pt DENIES ANY OTHER NEEDS AT THIS TIME. CALL LIGHT WITHIN REACH.
[2025-03-17] MEDS ORDERED: LEVOTHYROXINE SODIUM 112 MCG TAB PO SCH (07:00)
--- NOTE | 2025-03-17 07:45 | NUR ---
MORNING REPORT RECEIVED FROM FEROZ WASHBURN. PT LAYING FLAT IN BED AT THIS TIME WITH EYES CLOSED CHEST RISE EQUAL BILAT. PT HAS CALL LIGHT IN REACH AT THIS TIME.
[2025-03-17] MEDS ORDERED: MAGNESIUM SULFATE 2 GM/50 ML BAG IV ONE (09:00)
[2025-03-17] MEDS ORDERED: MAGNESIUM OXIDE 400 MG TABLET PO ONE (09:00)
[2025-03-17] MEDS ORDERED: lisinopriL 5 MG TAB PO SCH (09:00)
[2025-03-17] MEDS ORDERED: LIDOCAINE 2% VISCOUS 6 ML SYR TOP ONE (09:45)
--- NOTE | 2025-03-17 09:45 | NUR ---
PT REPORTED BLADDER PRESSURE AND BLADDER SCAN PERFORMED, 500ML OF URINE NOTED AND MD MOROCHO ORDERED STARKS CATH TO BE PLACED. STARKS PLACED USING STERILE TECHNIQUE AND 600 ML OF CLEAR/YELLOW URINE NOTED. PT HAS NO MORE CONCERNS AND HAS CALL LIGHT IN REACH AT THIS TIME.
--- NOTE | 2025-03-17 10:45 | NUR ---
PT SITING UP IN BED, PT IN ROOM AND UPDATED ON PT POC AT THIS TIME. PT HAS CALL LIGHT IN REACH AND NO CURRENT CONCERNS.
--- NOTE | 2025-03-17 11:50 | NUR ---
PT SITTING UP IN BED WITH IN ROOM. PT HAS NO CURRENT CONCERNS AT THIS TIME AND HAS CALL LIGHT IN REACH.
--- NOTE | 2025-03-17 12:51 | NUR ---
PT DENIES ANY NEEDS CURRENTLY PT HAS CALL LIGHT IN REACH AND PRESENT AT THE BED SIDE.
--- NOTE | 2025-03-17 15:02 | NUR ---
PT SITTING UP IN BED AT THIS TIME. PT IS CURRENTLY BED SIDE AND PT HAS NO CURRENT CONCERNS CALL LIGHT IN REACH AT THIS TIME.
--- NOTE | 2025-03-17 16:47 | NUR ---
PT SITTING UP IN BED WITH EYES CLOSED, AND CHEST RISE EQUAL BILAT. PT CALL LIGHT IN REACH AT THIS TIME.
--- NOTE | 2025-03-17 18:04 | NUR ---
PT SITTING UP IN BED AT THIS TIME. PT HAS NO CURRENT CONCERNS AT THIS TIME. PT HAS STARKS IN PLACE DRAINING CLEAR, YELLOW URINE. PT CALL LIGHT IN REACH.
--- NOTE | 2025-03-17 18:17 | NUR ---
PT IN BED WATCHING TV, AWAKE AND ALERT. PT DID NOT WANT FRESH ICE WATER, SHE STATED SHE WAS TOO FULL FROM DINNER. PT STATED SHE NEEDED NOTHING ELSE AT THIS TIME. CALL LIGHT WITHIN REACH ON PT'S LEFT SIDE, HER RIGHT ARM IS NOT FUNCTIONAL AT THIS TIME.
[2025-03-17] MEDS ORDERED: INSULIN GLARGINE-YFGN 100 UNIT/ML ML SUB-Q SCH (21:00)
--- NOTE | 2025-03-17 21:10 | NUR ---
Pt awake, alert to self and situation only. on room air, clear lungs, irregular heart rate, abd soft, cherry, attends in place, f/c patent . SL RFA patent. CBG 201 received 3 units SSI and reg scheduled Lantus. Pleasnt and cooperative. Turned and repositioned in bed R sided deficet. towel placed R hand. Cooperative with vitals and assessments
--- NOTE | 2025-03-17 23:53 | NUR ---
Resting, eyes closed, no s/sx distress. f/c patent. R arm elevated with pillows, repositioned
[2025-03-18] VITALS (12 sets, daily range): BP systolic 92–130; BP diastolic 46–58
--- NOTE | 2025-03-18 02:35 | NUR ---
RESTING, EYES CLOSED, NO S/SX DISTRESS. F/C PATENT. REPOSITIONED
--- NOTE | 2025-03-18 05:07 | NUR ---
PT REPOSITIONED, TOLERATED WELL, ON ROOM AIR. NO C/O PAIN OR SOB. F/C PATENT DRAINING SLIGHTLY CLOUDY URINE. PERICARE AND F/C DONE. IMPROVED REDNESS HERNAN AND VULVULAR AREA NOTED. R SIDED DEFICIT, ARM ELEVATED WITH PILLOWS., SCDS IN PLACE
[2025-03-18 05:11] LABS: BASOPHILS 0.3 % (0.1-1.2); EOSINOPHILS 1.4 % (0.7-5.8); HEMOGLOBIN 9.2 g/dL (11.2-15.7); LYMPHOCYTES 26.9 % (19.3-51.7); MCHC 31.7 g/dL (32.2-35.5); MONOCYTES 5.6 % (4.7-12.5); NEUTROPHILS 65.4 % (34.0-71.1); PLATELET COUNT 307 K/uL (182-369); RBC 3.41 M/uL (3.93-5.22)
[2025-03-18 05:24] LABS: ANION GAP 11.5 (7-21); BUN/CREATININE RATIO 12.67 (6.0-28.6); CALCIUM 8.8 mg/dL (8.5-10.1); CREATININE, SERUM 0.71 mg/dL (0.55-1.02); MAGNESIUM 1.5 mg/dL (1.8-2.4); PHOSPHORUS, INORGANIC 3.4 mg/dL (2.5-4.9); POTASSIUM 3.5 mmol/L (3.5-5.1)
--- NOTE | 2025-03-18 07:27 | NUR ---
MORNING REPORT RECIEVED FROM FEROZ SOLIS. PT LAYING IN BED WIT HEEYS CLSOED CHEST RISE EQUAL BILAT. PT HAD NO ACUTE EVENTS IN THE NIGHT. PT URINE OUTPUT HAS DECREASED BUT THERE IS NO CHANGE IN COLOR. PT URINE CLEAR YELLOW AT THIS TIME. PT CALL LIGHT IN REACH AT THIS TIME.
--- NOTE | 2025-03-18 07:39 | NUR ---
pt resting in bed, had a little trouble with . has water, did not want ice. pt reports she slept good last night.
--- NOTE | 2025-03-18 08:20 | NUR ---
PATIENT LAYING IN BED, EYES SHUT. CLEANED UP ROOM AND CHANGED WHITE BOARD. CALL LIGHT WITHIN REACH OF PT.
[2025-03-18] MEDS ORDERED: MAGNESIUM OXIDE 400 MG TABLET PO ONE (09:00)
--- NOTE | 2025-03-18 09:37 | NUR ---
PT AWAKE AND ALERT. LAYING IN BED WITH HEAD UP. PT HAD TROUBLE WITH COMPLETE VERBAL COMMUNICATION EXPLAINING BREAKFAST. CALL LIGHT WITHIN REACH, CHANGED GOWN, BREAKFAST WAS ALL OVER THE FRONT OF HER NIGHT GOWN. PT REQUESTED NOTHING ELSE AT THIS TIME.
--- NOTE | 2025-03-18 09:40 | NUR ---
CHANGED PT GOWN, BREAKFAST ALL OVER THE LAST GOWN.
--- NOTE | 2025-03-18 09:57 | NUR ---
PT SITTING UP IN BED, PT ATE ALL OF THEIR BREAKFAST AND HAS NO CURRENT CONCERNS AT THIS TIME. PT HAS STARKS IN PLACE AT THIS TIME AND WILL BE ORDERED TO BE REMOVED THIS MORNING. PT AGREEABLE AND NO CURRENT CONCERNS AT THIS TIME CALL LIGHT IN REACH.
--- NOTE | 2025-03-18 11:21 | NUR ---
PT SITTIGN UP IN BED WAS MOVED WITH PHYSICAL THERAPY TO CHAIR 2 PERSON MAX ASSIST. PT TOLERATED WELL AND IS CURRENTLY SITTING UP IN CHAIR WITH NO CURRENT NEEDS. PT HAS NOT VOIDED SINCE STARKS CATH REMOVAL AND FLUIDS ARE BEING ENCOURAGED. PT STATES SHE DOES NOT FEEL LIKE THEY NEED TO VOID AND LOWER ABD IS SOFT NON DISTENDED AT THIS TIME. PT CONTINUES TO HAVE NO CONCERNS CALL LIGHT IN REACH.
[2025-03-18] MEDS ORDERED: TAMSULOSIN HCL 0.4 MG CAP PO SCH (11:46)
--- NOTE | 2025-03-18 12:01 | NUR ---
PT IN CHAIR FOR LUNCH. LINEN CHANGE COMPLETED. PT HAS WATER NEXT TO HER, SHE IS WATCHING TV, WITH NO VOLUME ON- PT REPORTS NEEDING NOTHING ELSE AT THIS TIME.
--- NOTE | 2025-03-18 12:09 | NUR ---
PT SITTING UP IN CHAIR. PT HAS NOT VOIDED SINCE STARKS CATH REMOVAL. PT DENIES FEELING THE NEED TO VOID ABD SOFT NON DISTENDED AND NON TENDER AT THIS TIME. FLOWMAX WAS GIVEN (SEE EMAR). THIS RN WILL CONTINUE TO CHECK FOR VOIDS. PT HAS NO CONCERNS AND HAS CALL LIGHT IN REACH AT THIS TIME.
--- NOTE | 2025-03-18 13:06 | NUR ---
PT SITTING UP IN CHAIR, PT DENIES NEEDING TO VOID, BLADDER SOFT NON DISTENDED, PT BRIEF DRY AT THIS TIME. PT CALL LIGHT IN REACH.
--- NOTE | 2025-03-18 13:57 | NUR ---
PT STATES THEY HAD TO VOID, PT PLACED ON BSC 2PA PIVOT. PT TOLERATED WELL. PT CURRENTLY ON BSC WITH CALL LIGHT IN REACH AND INSTRUCTED TO CALL ONCE FINISHED.
[2025-03-18] MEDS ORDERED: LACTATED RINGER'S 1,000 ML IV PRN (14:45)
--- NOTE | 2025-03-18 14:45 | NUR ---
PT SITTING UP IN BSC, PT USED CALL LIGHT AND STATED THEY FELT DIZZY, PT WAS INSTRUCTED TO BREATHE. PT WAS THEN MOVED TO BED AND VITALS TAKEN (SEE VITALS). MD MOROCHO WAS NOTIFIED OF PT HYPOTENSION. MD MOROCHO ORDERED A BOLUS OF LR.
--- NOTE | 2025-03-18 14:57 | NUR ---
PT WAS RETURNED BACK TO BED FOLLOWING A DROP IN BP. HER CATHETER HAD BEEN REMOVED SO THIS MANAGER BODY PLACED A BRIEF ON HER. PT ALSO REPORTED FEELING COLD, SO I GOT HER A WARM BLANKET AND FRESH ICE WATER, REQUESTED. CALL LIGHT IN PLACE AND PT EDUCATED ON USING IT.
--- NOTE | 2025-03-18 15:11 | NUR ---
PT HAS RECIEVED HALF THE BOLUS OF LR. PT VITALS TAKEN (SEE VITALS) AND VITALS ARE STABLE AT THIS TIME. PT HAS NO CURRENT NEEDS AT THIS TIME AND HAS CALL LIGHT IN REACH.
--- NOTE | 2025-03-18 15:31 | NUR ---
PT ALEAVIN CHANGED TO TO BEING SOILED, PT TOLERATED DRESSING CHANGE ON COCCYX WELL. PT HAS NO CONCERNS CALL LIGHT IN REACH.
--- NOTE | 2025-03-18 16:41 | NUR ---
PT LAYING IN BED, PT DENIES FEELING THE NEED TO VOID AND LOWER ABD IS SOFT NON TENDER, NON DISTENDED. PT INSTRUCTED TO TRY AND DRINK ALOT OF WATER TO HELP INCREASE URINE OUTPUT. PT AGREEABLE AT THIS TIME AND HAS CALL LIGHT IN REACH.
--- NOTE | 2025-03-18 17:01 | NUR ---
PT URINATED AND HAD A SMALL BM. THIS SLEEPING CAR PORTER CLEANED HER UP AND USED BARRIAR CREAM, HER BACK SIDE WAS A LITTLE RED. THIS SLEEPING CAR PORTER INFORMED HER NURSE OF THE URINATION AND BM. CALL LIGHT WITHIN REACH AND PT HAS WATER. PT DID NOT WANT ICE IN HER WATER AT THIS TIME. BED LOWERED AND SIDE RAILS UP FOR SAFETY.
--- NOTE | 2025-03-18 17:26 | NUR ---
PT REPORSITIONED IN BED FOR DINNER, PT TOLERATED WELL AND HAS NO CURRENT CONCERNS. PT JUST ARRIVED AND UPDATED ON POC AT THIS TIME. PT CALL LIGHT IN REACH.
[2025-03-18] MEDS ORDERED: LACTATED RINGER'S 1,000 ML IV SCH (17:45)
--- NOTE | 2025-03-18 17:56 | NUR ---
PT SITTING UP IN BED, PT CONTINUES TO TAKE FLUIDS PO, AND HAS NO CURRENT CONCERNS AT THIS TIME PT IN ROOM AND HAS CALL LIGHT IN REACH.
--- NOTE | 2025-03-18 18:54 | NUR ---
PT IN BED WITH HEAD UP, FOR DINNER HER WAS IN ROOM TO VISIT. GOT PT FRESH ICE WATER, IS ABOUT TO LEAVE. CALL LIGHT IS WITHIN REACH AND PT REPORTS NEEDING NOTHING ELSE AT THIS TIME.
[2025-03-18] MEDS ORDERED: INSULIN GLARGINE-YFGN 100 UNIT/ML ML SUB-Q SCH (21:00)
[2025-03-18] MEDS ORDERED: APIXABAN 2.5 MG TAB PO SCH (21:00)
--- NOTE | 2025-03-18 21:05 | NUR ---
On room air, lungs clear dim at bases, cleared with CDB. abd soft, cherry, had small soft bm. incontinent of urine, skin care barrier cream and Allevyn changed. pure wick in place her request. Flaccid R arm and leg, turned and repositioned. cooperative. CBG 202 SSI 3 units plus scheduled lantus. hob elevated, alert to self and place
--- NOTE | 2025-03-19 01:18 | NUR ---
eyes closed, on room air, purewick in place, no drainage at this time. IVf infusing w/o problems. repositioned in bed.
--- NOTE | 2025-03-19 03:05 | NUR ---
Resting, eyes closed, hob elevated R arm elevated with pillows. repositioned. purewick in place with small amount of medium dark yellow urine.IVF infusing w/o problems
[2025-03-19 05:19] VITALS: BP 131/52
[2025-03-19 05:21] LABS: BASOPHILS 0.6 % (0.1-1.2); HEMATOCRIT 26.1 % (34.1-44.9); HEMOGLOBIN 8.4 g/dL (11.2-15.7); LYMPHOCYTES 32.7 % (19.3-51.7); MCH 27.1 PG (25.6-32.2); MCHC 32.2 g/dL (32.2-35.5); MCV 84.2 fL (79.4-94.8); MONOCYTES 6.6 % (4.7-12.5); NEUTROPHILS 57.8 % (34.0-71.1); PLATELET COUNT 280 K/uL (182-369)
[2025-03-19 05:22] VITALS: BP 131/52
[2025-03-19 05:33] LABS: ANION GAP 11.2 (7-21); BUN/CREATININE RATIO 13.33 (6.0-28.6); CALCIUM 8.5 mg/dL (8.5-10.1); CREATININE, SERUM 0.75 mg/dL (0.55-1.02); MAGNESIUM 1.4 mg/dL (1.8-2.4); POTASSIUM 3.2 mmol/L (3.5-5.1)
[2025-03-19 05:37] VITALS: BP 131/52
--- NOTE | 2025-03-19 07:44 | NUR ---
MORNING REPORT RECIEVED FROM FEROZ SOLIS. PT SITTING UP IN BED AWAKE AND ALERT AT THIS TIME. PT DENIES HAVING ANY NEEDS THIS MORNING AND SLEPT WELL DURING THE NIGHT. PT CALL LIGHT IN REACH.
[2025-03-19] MEDS ORDERED: POTASSIUM BICARBONATE/CIT AC 20 MEQ TABEF PO ONE (07:45)
[2025-03-19] MEDS ORDERED: MAGNESIUM SULFATE 2 GM/50 ML BAG IV ONE (07:45)
--- NOTE | 2025-03-19 07:52 | NUR ---
PATIENT IN BED AT THIS TIME. REFUGE MANAGER CHARTED HOURLY ROUNDS, PATIENT REFUSED CHAIR AT THIS TIME. CALL LIGHT WITHIN REACH, NO FURTHER NEEDS AT THIS TIME.
--- NOTE | 2025-03-19 09:00 | NUR ---
INTO SEE PATIENT. PATIENT DRINKING AN ENSURE. PATIENT STATES SHE IS GOING HOME WITH HER WHEN MEDICALLY CLEARED. NO FUTHER NEEDS.
[2025-03-19] MEDS ORDERED: TAMSULOSIN HCL0.4 MG PO (09:45)
[2025-03-19] MEDS ORDERED: JANUVIA100 MG PO (09:46)
[2025-03-19] MEDS ORDERED: BACTRIM DS TAB1 EACH PO (09:46)
[2025-03-19 09:48] VITALS: BP 129/47
--- NOTE | 2025-03-19 09:50 | NUR ---
PATIENT IN BED AT THIS TIME. REGISTERED VETERINARY TECHNICIAN CHARTED VITALS AND I&O'S. CALL LIGHT WITHIN REACH, NO FURTHER NEEDS.
--- NOTE | 2025-03-19 09:58 | NUR ---
PT SITTING UP IN BED, PT DENIES ANY DISCOMFORT AT THIS TIME AND HAS CALL LIGHT IN REACH AT THIS TIME.
[2025-03-19 10:00] VITALS: BP 129/47
[2025-03-19] MEDS ORDERED: POTASSIUM CHLORIDE 10 MEQ TABCR PO ONE (10:00)
--- NOTE | 2025-03-19 10:00 | NUR ---
PT LAYING FLAT IN BED AT THIS TIME, PT IS CALM WITH FAMILY IN ROOM ATTHIS TIME. PT HAS CALL LIGHT IN REACH.
--- NOTE | 2025-03-19 10:12 | NUR ---
UR RETRO CONCURRENT REVIEW: 2 MN FOR VERSALUS-PER GALLERY HOST MEETS INPT FOR UTI WITH RETENTION, NEED FOR STARKS. MEDICARE INPT 03/19/25 @ 4572 EMAIL SENT TO ADMITTING TO UPDATE REG NO AUTH REQUIRED PER MEDICARE GUIDELINES DISCHARGE TO HOME WHEN STABLE
--- NOTE | 2025-03-19 10:44 | NUR ---
HOME HEALTH ORDER SENT TO [facility]
--- NOTE | 2025-03-19 11:14 | NUR ---
PATIENT IN BED AT THIS TIME. THIS JAILOR AND JAILOR MANAN CHANGED PATIENTS BRIEF AND PROVIDED PATIENT WITH HERNAN CARE. BOTH CNAS PLACED NEW PUREWICK AT 1110. PATIENT ALSO REFUSED BED BATH BECAUSE SHE IS BEING DISCHARGED TODAY. CALL LIGHT WITHIN REACH, NO FURTHER NEEDS AT THIS TIME.
--- NOTE | 2025-03-19 11:42 | NUR ---
PT CURRENTLY GETTING DRESSED AND READY FOR DISCHARGE PT TOLERATING WELL WITH FAMILY IN ROOM AT THIS TIME. CALL LIGHT IN REACH.
--- NOTE | 2025-03-19 11:47 | NUR ---
PT SITTING UP IN BED AND HAS NO CONCERNS PT WAITING FOR TO ARRIVE AND THEN PT WILL BE DC'D PT AGREEABLE.
--- NOTE | 2025-03-19 11:57 | NUR ---
PATIENT IN BED AT THIS TIME. CUSTOMER SUPPORT ADVISOR CHARTED PATIENTS BLOOD SUGAR. CALL LIGHT WITHIN REACH, NO FURTHER NEEDS AT THIS TIME.
--- NOTE | 2025-03-19 12:20 | NUR ---
LAB CONTACTED THIS RN AND WAS TOLD ABOUT BLOOD CULTURES COLLECTED ON THE MD RASHAWN WAS SPOKEN TO ABOUT THIS AND IS AWARE.
[2025-03-19] MEDS ORDERED: INSULIN GLARGINE-YFGN 100 UNIT/ML ML SUB-Q SCH (21:00)
== END 2025-03-19 13:45 | disposition home or self-care (01) | DRG 690 ==
LOC: ED 15:39 → MS 15:41 → ED 20:19 → MS 03-19 09:45
PROVIDERS: Emergency Medicine; ADMIT Student in an Organized Health Care Education/Training Program; ATTEND Student in an Organized Health Care Education/Training Program
DX: N39.0 Urinary tract infection, site not specified (principal); E27.1 Primary adrenocortical insufficiency; E87.20 Acidosis, unspecified; I10 Essential (primary) hypertension; I48.91 Unspecified atrial fibrillation; R31.9 Hematuria, unspecified; E11.65 Type 2 diabetes mellitus with hyperglycemia; E11.40 Type 2 diabetes mellitus with diabetic neuropathy, unspecified; E03.9 Hypothyroidism, unspecified; Z66 Do not resuscitate; E87.6 Hypokalemia; B96.20 Unspecified Escherichia coli [E. coli] as the cause of diseases classified elsewhere; Z79.01 Long term (current) use of anticoagulants; Z79.890 Hormone replacement therapy; Z86.73 Personal history of transient ischemic attack (TIA), and cerebral infarction without residual deficits; Z79.52 Long term (current) use of systemic steroids; Z79.84 Long term (current) use of oral hypoglycemic drugs
CPT/HCPCS: 36415; 51701; 51702; 51798; 71045; 74176; 80048; 80053; 81001; 83036; 83605; 83690; 83735; 84100; 84443; 85025; 85610; 85730; 87040; 87077; 96361; 96366; 96375; 96376; 97110; 97162; 97166; 97530; 99285-25; A9270; G0378; J0696; J1815; J3475; J3480; J3490; J7060; J7121